=== PATIENT | male | born 1940 | race Hispanic/Latino ===

== ENCOUNTER 2019-06-29 13:38 | Inpatient (IN) | payer OTHER ==
[~2019-06-29] VITALS: Ht 167.6 cm; Wt 96.2 kg
[~2019-06-29 13:38] MED LIST: ATORVASTATIN CA20 MG PO; ENALAPRIL MALEA10 MG PO; JANUVIA50 MG PO; NORCO PO; PREDNISONE5 MG PO; TOUJEO SQ; TRAMADOL HCL-A1 EAC1; Z.0.ALLOPURINOL100 M PO; Z.0.AMBIEN10 MG PO; Z.0.COLCRYS0.6 MG PO; Z.0.GLIMEPIRIDE2 MG PO; Z.0.KEFLEX500 MG PO; Z.0.LOVENOX30 MG/0.3 SQ; Z.0.NIASPAN500 MG; Z.0.SIMVASTATIN40 MG; Z.0.TAMSULOSIN HCL0.; Z.0.VALIUM5 MG PO; Z.2.METFORMIN HCL500 PO
[2019-06-29] MEDS ORDERED: ASPIRIN 81 MG CHEW TAB PO ONE ×2 (13:45→17:00)
[2019-06-29 14:56] LABS: BASOPHILS % 0.8 % (0.0-1.0); EOSINOPHILS # (AUTO) 0.1 (0.0-0.4); HEMATOCRIT 29.2 % (38.2-49.6); HEMOGLOBIN 8.5 g/dL (14.0-18.0); LYMPHOCYTES # (AUTO) 0.7 (1.0-3.2); LYMPHOCYTES % 13.2 % (18.0-39.1); MEAN CORPUSCULAR HEMOGLOBIN 21.9 pg (28-32); MEAN CORPUSCULAR HGB CONC 29.1 g/dL (31-35); MEAN CORPUSCULAR VOLUME 75.1 fL (81-99); MONOCYTES # (AUTO) 0.4 (0.2-0.8); MONOCYTES % 8.7 % (4.4-11.3); NEUTROPHILS # (AUTO) 3.7 (2.1-6.9); NEUTROPHILS % 74.5 % (38.7-80.0); PLATELET COUNT 168 x10e3/uL (140-360); RED BLOOD COUNT 3.89 x10e6/uL (4.3-5.7); RED CELL DISTRIBUTION WIDTH 18.3 % (11.7-14.4)
--- NOTE | 2019-06-29 15:00 | Diagnostic Imaging Report ---
Chest, 1 view, 06/29/2019. History: Shortness of breath. Comparison: 12/10/2016. Findings: The cardiomediastinal silhouette and pulmonary vasculature are mildly prominent. Ill-defined opacity is present in the left midlung and right lateral lung. There are no acute osseous or soft tissue abnormalities. Impression: Mild vascular congestion with ill-defined bilateral pulmonary opacities. Recommend further evaluation with CT chest. Signed by: Saw Gilbert on 06/29/2019 2:57 PM
[2019-06-29 15:08] LABS: INR 0.97; PROTHROMBIN TIME 13.4 seconds (11.9-14.5)
[2019-06-29 15:25] LABS: ALANINE AMINOTRANSFERASE 70 IU/L (0-55); ALBUMIN 3.3 g/dL (3.5-5.0); ALBUMIN/GLOBULIN RATIO 0.8 (0.8-2.0); ALKALINE PHOSPHATASE 179 IU/L (40-150); ANION GAP 14.9 mmol/L (8-16); BLOOD UREA NITROGEN 25 mg/dL (7-26); BUN/CREATININE RATIO 27 (6-25); CALCIUM 9.3 mg/dL (8.4-10.2); CARBON DIOXIDE 23 mmol/L (22-29); CHLORIDE 106 mmol/L (98-107); CREATINE KINASE 39 IU/L (30-200); CREATININE, SERUM 0.93 mg/dL (0.72-1.25); EST GLOMERULAR FILTRATION RATE > 60 ML/MIN (60-); GLUCOSE 148 mg/dL (74-118); POTASSIUM 3.9 mmol/L (3.5-5.1); SODIUM 140 mmol/L (136-145)
[2019-06-29] MEDS ORDERED: SODIUM CHLORIDE FLUSH 10 ML SYR INJ PRN (17:00)
[2019-06-29] MEDS ORDERED: IOPAMIDOL 370 MG/ML 200 ML INFUS..BTL INJ ONE (18:19)
[2019-06-29] MEDS ORDERED: SODIUM CHLORIDE 0.9% 50ML 50 ML ONE (18:19)
--- NOTE | 2019-06-29 18:50 | Diagnostic Imaging Report ---
EXAM: CT Chest WITH contrast 06/29/2019 4:38 PM INDICATION: Left side chest pain, abnormal chest x-ray COMPARISON: Chest x-ray, 06/29/2019 TECHNIQUE: Chest was scanned utilizing a multidetector helical scanner from the lung apex through the level of the adrenal glands with administration of IV contrast. Coronal and sagittal reformations were obtained. Routine protocol was performed. Dose modulation, iterative reconstruction, and/or weight based adjustment of the mA/kV was utilized to reduce the radiation dose to as low as reasonably achievable. IV CONTRAST: 100 mL of Isovue-370 RADIATION DOSE: Total DLP: 641.56 mGy*cm Estimated effective dose: (DLP x 0.014 x size factor) mSv COMPLICATIONS: None FINDINGS: LINES/ TUBES: None. LUNGS AND AIRWAYS: There are moderate centrilobular and paraseptal emphysematous changes. Areas of subpleural reticulation seen in the upper and lower lobes. No pulmonary consolidation. Trachea and main bronchi are clear. PLEURA: No pleural effusion or pneumothorax. HEART AND MEDIASTINUM: The thyroid gland is normal. No mediastinal, hilar or axillary lymphadenopathy. The heart is normal in size.. There is no pericardial effusion. The thoracic aorta is atherosclerotic with scattered calcified plaque. No aneurysm. Main pulmonary artery measures 3.0 cm, upper normal. UPPER ABDOMEN: Included portions of the liver shows a 2.7 cm questionable ill-defined hypodensity in the right lobe segment 8 (series 2, image 55). Included portions of the spleen, pancreas and adrenals show no focal pathology. There are prominent vessels near the fundus of the stomach that may represent varices. There is a 2.9 cm apparent simple cyst partially visualized at the anterior mid left kidney. BONES: There are multiple destructive bony lesions including the posterior lateral left seventh rib with an associated 4.3 cm soft tissue mass in the posterior aspect of the left fifth rib where a 3.9 cm soft tissue mass involves the rib and left side of the vertebral body. There are lytic lesions involving the right side of T11 and T12. There is noted to be a minimally displaced fracture of the posterior aspect of the left eighth rib. There are apparent expansile destructive lesions of the lateral right seventh and eighth ribs. There are faint heterogeneous sclerotic foci in multiple vertebral bodies suggesting possible lesions as well. SOFT TISSUES: Superficial surrounding soft tissue unremarkable. IMPRESSION: 1. Multiple destructive bony lesions involving ribs and the T5 vertebral body. There are also lytic lesions involving the right side of the T11 and T12 vertebral bodies. 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 2. Questionable mass involving the right lobe of the liver. 3. Prominent tortuous vessels near the gastric fundus and GE junction suggesting varices. 4. Moderate centrilobular and paraseptal emphysema. Staff: Madeleine Signed by: Dr. Gavin Salvador M.D. on 06/29/2019 6:47 PM
--- NOTE | 2019-06-29 21:37 | NUR ---
RECIEVED PATIENT IN ROOM
[2019-06-30] VITALS (7 sets, daily range): BP systolic 134–173; BP diastolic 63–90
[2019-06-30 04:14] LABS: CREATINE KINASE 35 IU/L (30-200)
[2019-06-30 05:44] LABS: BASOPHILS % 0.3 % (0.0-1.0); EOSINOPHILS # (AUTO) 0.1 (0.0-0.4); HEMATOCRIT 25.9 % (38.2-49.6); HEMOGLOBIN 7.7 g/dL (14.0-18.0); LYMPHOCYTES # (AUTO) 0.8 (1.0-3.2); LYMPHOCYTES % 24.2 % (18.0-39.1); MEAN CORPUSCULAR HEMOGLOBIN 21.8 pg (28-32); MEAN CORPUSCULAR HGB CONC 29.7 g/dL (31-35); MEAN CORPUSCULAR VOLUME 73.4 fL (81-99); MONOCYTES # (AUTO) 0.4 (0.2-0.8); MONOCYTES % 12.5 % (4.4-11.3); NEUTROPHILS # (AUTO) 2.1 (2.1-6.9); NEUTROPHILS % 60.4 % (38.7-80.0); PLATELET COUNT 134 x10e3/uL (140-360); RED BLOOD COUNT 3.53 x10e6/uL (4.3-5.7); RED CELL DISTRIBUTION WIDTH 18.2 % (11.7-14.4)
[2019-06-30 06:08] LABS: ANION GAP 12.7 mmol/L (8-16); BLOOD UREA NITROGEN 21 mg/dL (7-26); BUN/CREATININE RATIO 25 (6-25); CALCIUM 9.2 mg/dL (8.4-10.2); CARBON DIOXIDE 25 mmol/L (22-29); CHLORIDE 105 mmol/L (98-107); CHOL/HDL RATIO 4.8 (3.9-4.7); CHOLESTEROL 139 MD/DL (0-199); CREATININE, SERUM 0.84 mg/dL (0.72-1.25); EST GLOMERULAR FILTRATION RATE > 60 ML/MIN (60-); GLUCOSE 129 mg/dL (74-118); HDL CHOLESTEROL 29 MG/DL (40-60); LDL CHOLESTEROL 78 MG/DL (60-130); POTASSIUM 3.7 mmol/L (3.5-5.1); SODIUM 139 mmol/L (136-145); TRIGLYCERIDES 161 MG/DL (0-149)
--- NOTE | 2019-06-30 07:14 | NUR ---
DR PAREDES CONSULT CALLED
--- NOTE | 2019-06-30 07:31 | NUR ---
REPORT GIVEN TO ZEV SHARMA
[2019-06-30] MEDS ORDERED: ASPIRIN 81 MG ENTERIC COATED PO SCH (09:00)
--- NOTE | 2019-06-30 10:15 | NUR ---
BEDSIDE REPORT GIVEN IN ROOM 185 TO RECEIVING NURSE
--- NOTE | 2019-06-30 10:20 | NUR ---
received pt to floor [id number] pt denies any pain right now pt has a left ac 20g sl davies rounded and states to dc tele pt and family aware of plan of care , understand there is a possibility of ca, ct abd pending to better diagnose will continue to monitor pt closely side railsx2, bed wheels locked call light is within easy reach, instructed to call for assistance if needed
[2019-06-30] MEDS ORDERED: JANUVIA50 MG PO (10:41)
[2019-06-30] MEDS ORDERED: BASAGLAR K100 UNIT/1 SUBCON (10:41)
[2019-06-30] MEDS ORDERED: PREDNISONE10 MG PO (10:41)
[2019-06-30] MEDS ORDERED: HUMALOG100 UNIT/1 SC (10:41)
[2019-06-30] MEDS ORDERED: GABAPENTIN300 MG PO (10:41)
[2019-06-30] MEDS ORDERED: DEXTROSE 50% SYRINGE 50 ML IV PRN (10:45)
[2019-06-30 11:05] LABS: CREATINE KINASE 37 IU/L (30-200)
[2019-06-30] MEDS: INSULIN LISPRO 100 UNIT/1 ML 3ML VIAL SQ SCH ×3 (11:50→20:42)
[2019-06-30] MEDS: ENALAPRIL MALEATE 10 MG TAB PO SCH (11:50)
[2019-06-30] MEDS: SENNOSIDES 8.6 MG TAB PO SCH ×2 (11:50→17:09)
[2019-06-30] MEDS: HYDROCODONE/APAP 10MG-325MG TAB PO PRN (12:22)
--- NOTE | 2019-06-30 13:11 | NUR ---
PT REPORTS COMPLETE RELIEVE OF BACK PAIN AFTER NORCO PO ADMINISTRATION WILL CONTINUE TO MONITOR
--- NOTE | 2019-06-30 16:30 | NUR ---
pt off floor for ct of abd via wheel chair at this time
[2019-06-30] MEDS: ALLOPURINOL 100 MG TAB PO SCH (17:09)
--- NOTE | 2019-06-30 18:09 | NUR ---
called report to markell in med surg 2 pt will be going to room 206 at this time
[2019-06-30] MEDS: METOPROLOL SUCCINATE 25 MG TAB XL PO SCH (18:15)
--- NOTE | 2019-06-30 18:16 | NUR ---
RCD PT FROM ER BY WHEEL CHAIR PT IS ALERT AND ORIENTED VITALS CHECKED PT RESTING ON BED BED LOW AND LOCKED CALL LIGHT IN REACH
[2019-06-30] MEDS ORDERED: SODIUM CHLORIDE 0.9% 50ML 50 ML ONE (18:38)
[2019-06-30] MEDS ORDERED: IOPAMIDOL 370 MG/ML 200 ML INFUS..BTL INJ ONE (18:39)
--- NOTE | 2019-06-30 18:52 | Diagnostic Imaging Report ---
EXAM: CT Abdomen and Pelvis WITHOUT and WITH contrast INDICATION: Chest pain, liver mass COMPARISON: CT chest, 06/29/2019 TECHNIQUE: Abdomen and pelvis were scanned utilizing a multidetector helical scanner from the lung base to the pubic symphysis before and after administration of IV contrast. Coronal and sagittal reformations were obtained. Liver mass protocol was performed. Scan was performed pre-, arterial, portal venous, and 5 minute delayed phase. Dose modulation, iterative reconstruction, and/or weight based adjustment of the mA/kV was utilized to reduce the radiation dose to as low as reasonably achievable. CTDIvol has been reviewed. It is below the limits set by the Radiation Protocol Committee (RPC). IV CONTRAST: 100 mL of Isovue-370 ORAL CONTRAST: None RADIATION DOSE: Total DLP: 2273.83 mGy*cm Estimated effective dose: (DLP x 0.015 x size factor) mSv COMPLICATIONS: None FINDINGS: LINES and TUBES: None. LOWER THORAX: Emphysema and subpleural reticulation at the lung bases as seen on the previous exam. As previously noted, destructive bony lesions involving T11 and T12. Minimally displaced fracture of the left eighth rib. Expansile destructive lesion of the right eighth rib. Heart size normal. HEPATOBILIARY: Mild lobulation of hepatic contour which may be seen with cirrhosis. There is a 6.1 x 5.6 x 6.7 cm mass in the right lobe of the liver, segment 8. The mass shows slight peripheral enhancement in arterial phase and is heterogeneously dense internally on delayed phase. No other discrete liver mass is seen. No biliary ductal dilation. GALLBLADDER: No radio-opaque stones or sludge. No wall thickening. SPLEEN: Mild splenomegaly with span of 14.6 cm. PANCREAS: No focal masses or ductal dilatation. ADRENALS: No adrenal nodules KIDNEYS/URETERS: Kidneys enhance symmetrically. No hydronephrosis. There are bilateral nonenhancing cyst density lesions in both kidneys compatible with renal cysts. No stones. GI TRACT: No abnormal distention, wall thickening, or evidence of bowel obstruction. Appendix is normal. PELVIC ORGANS/BLADDER: Urinary bladder appears unremarkable. No discrete abnormal mass or fluid collection in the pelvis. LYMPH NODES: No dominant lymph node mass is identified in the abdomen, retroperitoneum or pelvis. VESSELS: Main portal vein measures 1.9 cm, dilated. There are prominent vessels in the gastric fundus suggesting varices. Extensive atherosclerotic plaque is seen along the abdominal aorta and iliac arteries. No aneurysm. The IVC has an unremarkable appearance. PERITONEUM / RETROPERITONEUM: No pneumoperitoneum or ascites. BONES: Bone lesions as previously described in the chest and thoracic spine. There are degenerative changes in the lumbar spine including mild anterior wedging at L1. SOFT TISSUES: Superficial surrounding soft tissue shows small bilateral inguinal hernias containing fat. IMPRESSION: 1. Indeterminate mildly enhancing solid mass in the right lobe of the liver. This may represent a primary or metastatic neoplasm. 2. Cirrhotic hepatic morphology with splenomegaly. The main portal vein appears dilated and varices are seen at the gastric fundus. 3. Destructive bone lesions as previously described on chest CT. Signed by: Dr. Gavin Salvador M.D. on 06/30/2019 6:49 PM
--- NOTE | 2019-06-30 19:13 | NUR ---
PT RESTING ON BED BED SIDE REPORT GIVEN TO ONCOMING NURSE
[2019-06-30] MEDS: INSULIN GLARGINE 100 UNITS/ML VIAL SQ SCH (20:43)
--- NOTE | 2019-06-30 21:33 | Consultation ---
DATE OF CONSULTATION: 06/30/2019 Cardiology Consultation CONSULTING PHYSICIAN: Zhen Bryant MD, Interventional Cardiology. REASON FOR CONSULTATION: Chest pain. HISTORY OF PRESENT ILLNESS: Mr. Quintana is a 78-year-old man with a past medical history significant for diabetes mellitus, hypertension, and morbid obesity, who presents with complaints of discomfort to the back and chest wall, worse with inspiration. EKG was remarkable for sinus rhythm, nonspecific repolarization abnormalities. Cardiac enzymes are serially negative. BNP 130. He describes chest discomfort to occur intermittently throughout the day and to be unaffected by exertion and it is somewhat affected by position. CT chest was remarkable for multiple destructive bony lesions involving ribs and the T5 vertebral body. There are also lytic lesions involving the right side of T11 and T12 vertebral bodies finding suggesting multiple bony metastases of undetermined primary. There is an also questionable mass involving the right lobe of the liver, torturous vessels in the gastric fundus and GE junction suggest varices, moderate centrilobular and paraseptal emphysema. REVIEW OF SYSTEMS: A 12-system review is negative except for as noted above. ALLERGIES: NO KNOWN DRUG ALLERGIES. PAST MEDICAL HISTORY: Significant for diabetes mellitus and hypertension. SOCIAL HISTORY: Active smoker. Denies alcohol or drugs. FAMILY HISTORY: Noncontributory. PHYSICAL EXAMINATION: VITAL SIGNS: Temperature 98.5, heart rate 75, respiratory rate 16, blood pressure 159/84, and O2 saturation 97% on room air. GENERAL: No acute distress. Alert, active. NECK: No JVD. CHEST: Clear to auscultation. CARDIOVASCULAR: Regular rate and rhythm. Normal S1, S2. No S3, no S4. No murmurs, no rubs. ABDOMEN: Soft, nontender, and nondistended. Bowel sounds positive. EXTREMITIES: No cyanosis, clubbing, or edema. CARDIOVASCULAR MEDICATIONS: Reviewed. Enalapril 10 mg daily and morphine p.r.n. LABORATORY DATA: Studies reviewed. Sodium 139, potassium 3.7, chloride 105, bicarbonate 25, BUN 21, creatinine 0.84, glucose 129, calcium 9.2. Serial cardiac enzymes negative. Triglycerides 161, total cholesterol 139, LDL 78, HDL 29, and TSH 1.6. Prostate specific antigen is pending. AST mildly elevated at 58, ALT mildly elevated at 70, alkaline phosphatase mildly elevated at 179, total protein 7.7, and albumin 3.3. ASSESSMENT AND PLAN: 1. Back and chest discomfort, pleuritic/musculoskeletal in features with observe multiple bone lytic lesions suggestive of metastatic disease. 2. Hypertension. 3. Diabetes mellitus. 4. Active smoker. 5. Abnormal LFTs. 6. Recommend echocardiogram reviewed preserved left ventricular systolic function noted without significant valvular abnormalities. Further workup for possible metastatic disease is advised. PSA is pending. Heme-Onc consultation advised. Pain control as needed. Optimize antihypertensive medications. Zhen Bryant MD AFV/MODL /[id number]
[2019-06-30 23:51] LABS: BILIRUBIN,URINE NEGATIVE (NEGATIVE); CLARITY,URINE CLEAR (CLEAR); COLOR,URINE YELLOW (YELLOW); KETONES,URINE NEGATIVE (NEGATIVE); LEUKOCYTE ESTERASE ,URINE NEGATIVE (NEGATIVE); NITRITE,URINE NEGATIVE (NEGATIVE); PROTEIN,URINE DIPSTICK NEGATIVE (NEGATIVE); URINE UROBILINOGEN 0.2 mg/dL (0.2 - 1)
[2019-07-01 00:04] LABS: BACTERIA,URINE RARE /HPF; EPITHELIAL CELLS,URINE RARE /LPF; RBC,URINE 0-5 /HPF (0-5); WBC,URINE (MAN) 0-5 /HPF (0-5)
--- NOTE | 2019-07-01 04:26 | Consultation ---
DATE OF CONSULTATION: 06/30/2019 GI Consult Note REASON FOR CONSULT: 1. Cryptogenic liver cirrhosis. 2. Metastatic liver mass. HISTORY OF PRESENTING ILLNESS: A 78-year-old speaking male. I derived a history through her daughter, who was sitting in the room. She was bilingual. She helped to translate between us. The patient normally follows with Dr. Lisa Cook. He has known history of type 2 diabetes, on insulin, hyperlipidemia, and hypertension. He had been complaining about bony pain in the spine and in the ribs. This prompted the family to bring him to the emergency room. Here, he has had a CT of the chest with contrast that revealed destructive bony lesions in thoracic spine as well as in the ribs. Subsequently, the patient underwent a CT of the abdomen and pelvis with and without contrast. This showed cirrhotic liver, 6.1 x 6.7 cm enhancing mass in the right lobe of the liver with a prominent vessel in the gastric fundus suggestive of varices, mild splenomegaly without any obvious free fluid. Oncology has been consulted. He is scheduled to undergo liver mass biopsy tomorrow. From the nurse, the patient never knew that he has liver cirrhosis, until he had a CT scan done on this admission. Viral hepatitis serology has also been ordered, result is pending. He never had alcohol dependence in his life. He rarely drank alcohol on special occasions. In addition to above, blood work revealed significant microcytic anemia, hemoglobin dropped down from 8.5 to 7.7, MCV 73.4. He has had a colonoscopy five years ago, the patient does not know where he got it done. Therefore, he does not even know the report of the colonoscopy. The patient's daughter tells me that he might have had upper endoscopy, but they are not sure about it. The patient reports otherwise no dark stool, hematemesis, or hematochezia. REVIEW OF SYSTEMS: A 12-point system reviewed, symptomatology is limited as per HPI. PAST MEDICAL HISTORY: Type 2 diabetes, hypertension, hyperlipidemia, peripheral neuropathy, and gout. PAST SURGICAL HISTORY: Colonoscopy in the past. FAMILY HISTORY: Noncontributory. SOCIAL HISTORY: No smoking, alcohol, or any illicit drug use. ALLERGIES: NO KNOWN DRUG ALLERGIES. HOME MEDICATIONS: Allopurinol, enalapril, gabapentin, glimepiride, insulin glargine, insulin lispro, metformin, prednisone, and sitagliptin. PHYSICAL EXAMINATION: VITAL SIGNS: Temperature 96.8, pulse 71, respirations 18, blood pressure 147/69, and oxygen saturation 94% on room air. GENERAL: Not in any acute or apparent distress. HEENT: Oral mucosa is moist. Anicteric sclerae. CVS: S1 and S2 regular. LUNGS: Bilaterally grossly clear with decreased breath sounds at bases. Chest wall tenderness present. ABDOMEN: Protuberant belly. soft, palpable. Mild hepatomegaly 2-3 fingerbreadths below right costal margin, shifting dullness equivocal. Nontender. No hernia. Bowel sounds present. EXTREMITIES: Warm. Trace bilateral leg edema. LABORATORY DATA: Sodium 139, potassium 3.7, chloride 105, bicarb 25, BUN 21, creatinine 0.84, and glucose 129. Liver enzymes on 06/29/2019 showed a total bilirubin of 0.4, AST 58, ALT 70, alkaline phosphatase 179, total protein 7.7, and albumin 3.3. WBC 3.43, hemoglobin 7.7, hematocrit 25.9, MCV 73.4, and platelet count 134. CT of the chest with contrast showed: 1. Multiple destructive bony lesions involving ribs and the T5 vertebral body. There are also lytic lesions involving the right side of T11 and T12 vertebral bodies. 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 2. Questionable mass involving the right lobe of the liver and 0.3 prominent tortuous vessels near the gastric fundus and GE junction suggestive of varices. 3. Moderate centrilobular and paraseptal emphysema. CT scan of the abdomen and pelvis with and without contrast showed: 1. Indeterminate mildly enhancing solid mass in the right lobe of the liver measuring about 6.1 x 6.7 cm. This could be primary versus metastatic neoplasm. 2. Cirrhotic hepatic morphology with splenomegaly. The main portal vein appears dilated and varices are seen at the gastric fundus. 3. Destructive bone lesions as previously described on chest CT. ASSESSMENT: A 78-year-old male with a history of type 2 diabetes and hyperlipidemia, who never had an alcohol dependence, presenting with bony pain in the upper back and ribs, found to have destructive metastatic lesion in the bones with a 6 cm right lower lobe mass with a cirrhotic morphology. IMPRESSION: 1. Liver mass in a cirrhotic liver. There is hepatocellular carcinoma until and unless proved otherwise. 2. Anemia of microcytic indices, could be due to iron deficiency or mixed type. It is likely that the patient has underlying portal hypertensive gastropathy through which he is losing blood. PLAN: Liver mass biopsy is pending tomorrow. We will do ultrasound to check for ascites. AFP tumor marker. For microcytic anemia, iron profile has already been ordered. Stool for occult blood needs to be collected. I had a detailed discussion with of the patient's daughter at the bedside. Definite treatment for hepatocellular carcinoma and cirrhotic liver is liver transplant. However, the patient does not meet [place] criteria. Liver mass is more than 5 cm in size as well as metastatic in nature with mets in the bones. Some survival benefit has been seen by putting the patient on sorafenib. For anemia, further management based upon iron profile and stool guaiac results. I thank Dr. Evans for allowing me to participate in the care of this patient. Leoncio Nguyen MD SA/JAK /[id number] MARY
[2019-07-01 05:38] LABS: EOSINOPHILS # (AUTO) 0.1 (0.0-0.4); EOSINOPHILS % 2.5 % (0.0-6.0); HEMATOCRIT 28.7 % (38.2-49.6); HEMOGLOBIN 8.3 g/dL (14.0-18.0); LYMPHOCYTES # (AUTO) 1.1 (1.0-3.2); LYMPHOCYTES % 26.4 % (18.0-39.1); MEAN CORPUSCULAR HEMOGLOBIN 21.4 pg (28-32); MEAN CORPUSCULAR HGB CONC 28.9 g/dL (31-35); MEAN CORPUSCULAR VOLUME 74.2 fL (81-99); MONOCYTES # (AUTO) 0.5 (0.2-0.8); MONOCYTES % 12.7 % (4.4-11.3); NEUTROPHILS # (AUTO) 2.3 (2.1-6.9); NEUTROPHILS % 56.7 % (38.7-80.0); PLATELET COUNT 139 x10e3/uL (140-360); RED BLOOD COUNT 3.87 x10e6/uL (4.3-5.7); RED CELL DISTRIBUTION WIDTH 18.1 % (11.7-14.4)
[2019-07-01 05:54] VITALS: BP 162/77
[2019-07-01 05:55] LABS: ANION GAP 15.1 mmol/L (8-16); BLOOD UREA NITROGEN 21 mg/dL (7-26); BUN/CREATININE RATIO 23 (6-25); CALCIUM 9.2 mg/dL (8.4-10.2); CARBON DIOXIDE 25 mmol/L (22-29); CHLORIDE 102 mmol/L (98-107); CREATININE, SERUM 0.93 mg/dL (0.72-1.25); EST GLOMERULAR FILTRATION RATE > 60 ML/MIN (60-); GLUCOSE 133 mg/dL (74-118); POTASSIUM 4.1 mmol/L (3.5-5.1); SODIUM 138 mmol/L (136-145)
[2019-07-01 06:30] LABS: FERRITIN 15.27 ng/mL (21.81-274.66)
[2019-07-01] MEDS: INSULIN LISPRO 100 UNIT/1 ML 3ML VIAL SQ SCH ×4 (07:30→20:40)
[2019-07-01] MEDS: SENNOSIDES 8.6 MG TAB PO SCH ×2 (08:20→18:15)
[2019-07-01] MEDS: ALLOPURINOL 100 MG TAB PO SCH ×2 (08:20→18:15)
[2019-07-01] MEDS: ENALAPRIL MALEATE 10 MG TAB PO SCH ×2 (08:20→20:36)
[2019-07-01] MEDS: METOPROLOL SUCCINATE 25 MG TAB XL PO SCH (08:20)
[2019-07-01] MEDS: MORPHINE SULFATE INJ 4 MG/ML INJ 1ML IV PRN ×2 (08:31→20:34)
[2019-07-01 08:32] VITALS: BP 168/86
--- NOTE | 2019-07-01 09:32 | Diagnostic Imaging Report ---
EXAM: Right upper quadrant abdominal ultrasound INDICATION: Right upper quadrant pain COMPARISON: CT abdomen pelvis of 06/30/2019 TECHNIQUE: Transverse and longitudinal images of the right upper quadrant abdomen were obtained FINDINGS: Liver: Size: 19.8 cm in the right midclavicular line, normal Appearance: Mildly heterogeneous echogenicity, mildly nodular contour Mass: 7.6 x 5.6 x 5.7 cm hypoechoic mass in the right liver and associated vascularity. Gallbladder: No gallbladder distension, pericholecystic fluid, wall thickening, stone, or reported sonographic Shafer's sign. Gallbladder wall measures 3 mm. Bile Ducts: Intrahepatic Ducts: No dilatation Extrahepatic Ducts: Common bile duct measures 2 mm Pancreas: Visualized portions of the pancreatic head, neck and proximal body are normal. Kidney: The right kidney measures 9.7 cm without evidence of hydronephrosis or stone. Vessels: Aorta: Visualized portions are normal Inferior Vena Cava: Visualized portions are normal Main Portal Vein: 1.0 cm, normal size with hepatopetal flow. Free Fluid: No ascites or pleural effusion IMPRESSION: 7.6 cm right hepatic mass. No sonographic evidence of cholelithiasis or cholecystitis. No ascites. Signed by: Gissell Milian MD on 07/01/2019 9:28 AM
[2019-07-01 11:56] VITALS: BP 168/86
[2019-07-01 11:57] VITALS: BP 168/86
[2019-07-01 12:11] VITALS: BP 147/80
--- NOTE | 2019-07-01 12:44 | Progress Note ---
DATE: 07/01/2019 Cardiology Progress Note SUBJECTIVE: Chest discomfort and back discomfort is better. Has no other complaints currently. Updated on echo findings with preserved left ventricular systolic function noted. OBJECTIVE: VITAL SIGNS: Temperature 97.8, heart rate 71, respiratory rate 16, blood pressure 168/86, and O2 saturation 97% on room air. GENERAL: No acute distress, alert. NECK: No JVD. CHEST: Clear to auscultation. CARDIOVASCULAR: Regular rate and rhythm. Normal S1, S2. ABDOMEN: Soft. Bowel sounds positive. EXTREMITIES: Trace edema. CARDIOVASCULAR MEDICATIONS: Reviewed. Metoprolol succinate 25 mg daily, Vasotec 10 mg p.o. daily was switched to p.o. b.i.d. 10 mg. STUDIES: Reviewed. White blood cells 4.02, hemoglobin 8.3, platelets 139, glucose 165. Last creatinine 0.9. Last potassium was 4.1. Fecal occult blood test negative. ASSESSMENT AND PLAN: 1. Back and chest discomfort in the setting of multiple bone lytic lesions, suggestive of metastatic disease. 2. Hypertension. 3. Diabetes mellitus. 4. Active smoker. 5. Abnormal LFTs. 6. Preserved left ventricular systolic function on echocardiogram. RECOMMEND: I recommend further workup for abnormal imaging findings concerning for metastatic disease, it is ongoing Heme-Onc consultation considered. PSA is still pending. CEA is pending too. Alpha fetoprotein is pending too. Optimize antihypertensive management. We will up titrate enalapril to b.i.d. dosing. Continue metoprolol. MD TIFF Ordoñez/JAK /[id number]
[2019-07-01] MEDS ORDERED: LIDOCAINE HCL 1% LOCAL INJ 20 ML VIAL ONE (13:09)
[2019-07-01] MEDS ORDERED: FENTANYL CITRATE/PF 100MCG/2 ML INJ ONE (13:24)
[2019-07-01] MEDS ORDERED: MIDAZOLAM HCL 2 MG/2 ML VIAL ONE (13:24)
--- OUTSIDE RECORDS SUMMARY | 2019-07-01 13:59 | XMS REPORT ---
Author Author [facility] Address Unknown Phone Unavailable Care Team Providers Care Lead Trainer Name Role Phone DIEGO LY Unavailable Unavailable Problems This patient has no known problems. Allergies, Adverse Reactions, Alerts This patient has no known allergies or adverse reactions. Medications This patient has no known medications. Results Test Description Test Time Test Comments Text Results Atomic Results Result Comments US ABDOMEN LIMITED 2019-07-01 09:17:00 [place] [address] Patient Name: KYAW SANTANA MR #: [id number] : 1940 Age/Sex: 78/M Req #: [id number] [facility] Physician: DIEGO LY MD Ordered by: MARTITA EDWARDS MD Report #: [id number] Location: MED/SURG2 Room/Bed: [facility] Procedure: [id number] US/US ABDOMEN LIMITED Exam Date: 07/01/19 Exam Time: 0748 REPORT STATUS: Signed EXAM: Right upper quadrant abdominal ultrasound INDICATIO N: Right upper quadrant pain COMPARISON: CT abdomen pelvis of 06/30/2019 TECHNIQUE: Transverse and longitudinal images of the right upper quadrant abdomen were obtained FINDINGS: Liver: Size: 19.8 cm in the right midclavicular line, normal Appearance: Mildly heterogeneous echogenicity, mildly nodular contour Mass: 7.6 x 5.6 x 5.7 cm hypoechoic mass in the right liver and associated vascularity. Gallbladder: No gallbladder distension, pericholecystic fluid, wall thickening, stone, or reported sonographic Shafer's sign. Gallbladder wall measures 3 mm. Bile Ducts: Intrahepatic Ducts: No dilatation Extrahepatic Ducts: Common bile duct measures 2 mm Pancreas: Visualized portions of the pancreatic head, neck and proximal body are normal. Kidney: The right kidney measures 9.7 cm without evidence of hydronephrosis or stone. Vessels: Aorta: Visualized portions are normal Inferior Vena Cava: Visualized portions are normal Main Portal Vein: 1.0 cm, normal size with hepatopetal flow. Free Fluid: No ascites or pleural effusion IMPRESSION: 7.6 cm right hepatic mass. No sonographic evidence of cholelithiasis or cholecystitis. No ascites. Signed by: Tamara Gee MD on 07/01/2019 9:28 AM Dictated By: TAMARA GEE MD 7 Transcribed By: SANDY on 07/01/19927 COPY TO: MARTITA EDWARDS MD CT ABDOMEN/PELVIS WOW 2019-06-30 18:28:00 [place] [address] Patient Name: KYAW SANTANA MR #: [id number] : 1940 Age/Sex: 78/M Req #: [id number] Adm Physician: DIEGO LY MD Ordered by: NATTY PEREZ NP Report #: [id number] Location: [facility] Room/Bed: [facility] Procedure: [id number] CT/CT ABDOMEN/PELVIS WOW Exam Date: 06/30/19 Exam Time: 1720 REPORT STATUS: Signed EXAM: CT Abdomen and Pelvis WITHOUT and WITH contrast INDICATION: Chest pain, liver mass COMPARISON: CT chest, 06/29/2019 TECHNIQUE: Abdomen and pelvis were scanned utilizing a multidetector helical scanner from the lung base to the pubic symphysis before and after administration of IV contrast. Coronal and sagittal reformations were obtained. Liver mass protocol was performed. Scan was performed pre-, arterial, portal venous, and 5 minute delayed phase. Dose modulation, iterative reconstruction, and/or weight based adjustment of the mA/kV was utilized to reduce the radiation dose to as low as reasonably achievable. CTDIvol has been reviewed. It is below the limits set by the Radiation Protocol Committee (RPC). IV CONTRAST: 100 mL of Isovue-370 ORAL CONTRAST: None RADIATION DOSE: Total DLP: 2273.83 mGy*cm Estimated effective dose: (DLP x 0.015 x size factor) mSv COMPLICATIONS: None FINDINGS: LINES and TUBES: None. LOWER THORAX: Emphysema and subpleural reticulation at the lung bases as seen on the previous exam. As previously noted, destructive bony lesions involving T11 and T12. Minimally displaced fracture of the left eighth rib. Expansile destructive lesion of the right eighth rib. Heart size normal. HEPATOBILIARY: Mild lobulation of hepatic contour which may be seen with cirrhosis. There is a 6.1 x 5.6 x 6.7 cm mass in the right lobe of the liver, segment 8. The mass shows slight peripheral enhancement in arterial phase and is heterogeneously dense internally on delayed phase. No other discrete liver mass is seen. No biliary ductal dilation. GALLBLADDER: No radio- opaque stones or sludge. No wall thickening. SPLEEN: Mild splenomegaly with span of 14.6 cm. PANCREAS: No focal masses or ductal dilatation. ADRENALS: No adrenal nodules KIDNEYS/URETERS: Kidneys enhance symmetrically. No hydronephrosis. There are bilateral nonenhancing cyst density lesions in both kidneys compatible with renal cysts. No stones. GI TRACT: No abnormal distention, wall thickening, or evidence of bowel obstruction. Appendix is normal. PELVIC ORGANS/BLADDER: Urinary bladder appears unremarkable. No discrete abnormal mass or fluid collection in the pelvis. LYMPH NODES: No dominant lymph node mass is identified in the abdomen, retroperitoneum or pelvis. VESSELS: Main portal vein measures 1.9 cm, dilated. There are prominent vessels in the gastric fundus suggesting varices. Extensive atherosclerotic plaque is seen along the abdominal aorta an d iliac arteries. No aneurysm. The IVC has an unremarkable appearance. PERITONEUM / RETROPERITONEUM: No pneumoperitoneum or ascites. BONES: Bone lesions as previously described in the chest and thoracic spine. There are degenerative changes in the lumbar spine including mild anterior wedging at L1. SOFT TISSUES: Superficial surrounding soft tissue shows small bilateral inguinal hernias containing fat. IMPRESSION: 1. Indeterminate mildly enhancing solid mass in the right lobe of the liver. This may represent a primary or metastatic neoplasm. 2. Cirrhotic hepatic morphology with splenomegaly. The main portal vein appears dilated and varices are seen at the gastric fundus. 3. Destructive bone lesions as previously described on chest CT. Signed by: Dr. Sachi Shea M.D. on 06/30/2019 6:49 PM Dictated By: SACHI SHEA MD 48 Transcribed By: SANDY on 06/30/191848 COPY TO: NATTY PEREZ RUBBER BLOCK LAYER CT CHEST W 2019-06-29 18:26:00 [place] [address] Patient Name: KYAW SANTANA MR #: [id number] : 1940 Age/Sex: 78/M Req #: [id number] Adm Physician: Ordered by: NATTY PEREZ RUBBER BLOCK LAYER Report #: [id number] Location: ER Room/Bed: Procedure: [id number] CT/CT CHEST W Exam Date: 06/29/19 Exam Time: 1700 REPORT STATUS: Signed EXAM: CT Chest WITH contrast 06/29/2019 4:38 PM INDICATION: Left side chest pain, abnormal chest x-ray COMPARISON: Chest x-ray, 06/29/2019 TECHNIQUE: Chest was scanned utilizing a multidetector helical scanner from the lung apex through the level of the adrenal glands with administration of IV contrast. Coronal and sagittal reformations were obtained. Routine protocol was performed. Dose modulation, iterative reconstruction, and/or weight b ased adjustment of the mA/kV was utilized to reduce the radiation dose to as low as reasonably achievable. IV CONTRAST: 100 mL of Isovue- 370 RADIATION DOSE: Total DLP: 641.56 mGy*cm Estimated effective dose: (DLP x 0.014 x size factor) mSv COMPLICATIONS: None FINDINGS: LINES/ TUBES: None. LUNGS AND AIRWAYS: There are moderate centrilobular and paraseptal emphysematous changes. Areas of subpleural reticulation seen in the upper and lower lobes. No pulmonary consolidation. Trachea and main bronchi are clear. PLEURA: No pleural effusion or pneumothorax. HEART AND MEDIASTINUM: The thyroid gland is normal. No mediastinal, hilar or axillary lymphadenopathy. The heart is normal in size.. There is no pericardial effusion. The thoracic aorta is atherosclerotic with scattered calcified plaque. No aneurysm. Main pulmonary artery measures 3.0 cm, upper normal. UPPER ABDOMEN: Included portions of the liver shows a 2.7 cm questionable ill-defined hypodensity in the right lobe segment 8 (series 2, image 55). Included portions of the spleen, pancreas and adrenals show no focal pathology. There are prominent vessels near the fundus of the stomach that may represent varices. There is a 2.9 cm apparent simple cyst partially visualized at the anterior mid left kidney. BONES: There are multiple destructive bony lesions including the posterior lateral left seventh rib with an associated 4.3 cm soft tissue mass in the posterior aspect of the left fifth rib where a 3.9 cm soft tissue mass involves the rib and left side of the vertebral body. There are lytic lesions involving the right side of T11 and T12. There is noted to be a minimally displaced fracture of the posterior aspect of the left eighth rib. There are apparent expansile destructive lesions of the lateral right seventh and eighth ribs. There are faint heterogeneous sclerotic foci in multiple vertebral bodies suggesting possible lesions as well. SOFT TISSUES: Superficial surrounding soft tissue unremarkable. IMPRESSION: 1. Multiple destructive bony lesions involving ribs and the T5 vertebral body. There are also lytic lesions involving the right side of the T11 and T12 vertebral bodies. 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 2. Questionable mass involving the right lobe of the liver. 3. Prominent tortuous vessels near the gastric fundus and GE junction suggesting varices. 4. Moderate centrilobular and paraseptal emphysema. Staff: Madeleine Signed by: Dr. Sachi Shea M.D. on 06/29/2019 6:47 PM Dictated By: SACHI SHEA MD 46 Transcribed By: SANDY on 06/29/191846 COPY TO: NATTY PEREZ RUBBER BLOCK LAYER CHEST SINGLE (NOT PORTABLE) 2019-06-29 14:56:00 [place] [address] Patient Name: KYAW SANTANA MR #: [id number] : 1940 Age/Sex: 78/M Req #: [id number] Adm Physician: Ordered by: NATTY PEREZ RUBBER BLOCK LAYER Report #: [id number] Location: ER Room/Bed: Procedure: [id number] DX/CHEST SINGLE (NOT PORTABLE) Exam Date: 06/29/19 Exam Time: 1420 REPORT STATUS: Signed Chest, 1 view, 06/29/2019. History: Shortness of breath. Comparison: 12/10/2016. Findings: The cardiomediastinal silhouette and pulmonary vasculature are mildly prominent. Ill-defined opacity is present in the left midlung and right lateral lung. There are no acute osseous or soft tissue abnormalities. Impression: Mild vascular congestion with ill-defined bilateral pulmonary opacities. Recommend further evaluation with CT chest. Signed by: Natty Gilbert on 06/29/2019 2:57 PM Dictated By: NATTY GILBERT MD 56 Transcribed By: SANDY on 06/29/191456 COPY TO: NATTY PEREZ RUBBER BLOCK LAYER
--- NOTE | 2019-07-01 15:58 | Diagnostic Imaging Report ---
TECHNIQUE: Frontal view of the chest. INDICATION: 78-year-old man after left rib lesion biopsy. COMPARISON: CT-guided left rib lesion biopsy from earlier same date, chest radiograph 06/29/2019. FINDINGS: LINES/TUBES: None. LUNGS: Decreased aeration of the lungs. No consolidation or pulmonary edema. PLEURA: No definite pneumothorax pneumothorax or significant pleural effusion. HEART AND MEDIASTINUM: The cardiomediastinal silhouette appears prominent, likely due to low lung volumes. SOFT TISSUES AND BONES: Persistent nodular opacity projects over the left midlung zone and correlates with the recently biopsied left rib lesion. IMPRESSION: No definite pneumothorax. Signed by: Braxton Campbell MD on 07/01/2019 3:54 PM
--- NOTE | 2019-07-01 17:10 | Diagnostic Imaging Report ---
PROCEDURE: CT-guided left pleural/lung mass biopsy Procedural Personnel Attending physician(s): Gissell Milian MD Fellow physician(s): None Resident physician(s): None Advanced practice provider(s): None Pre-procedure diagnosis: Left pleural mass Post-procedure diagnosis: Same Indication: Histopathologic diagnosis Previous biopsy of same target (QCDR): No Additional clinical history: Left pleural mass with extension to rib and lung. Complications: No immediate complications. IMPRESSION: CT-guided biopsy of left pleural based mass involving rib and lung. Plan: Specimen(s) sent for evaluation. PROCEDURE SUMMARY: - Percutaneous CT-guided core needle and fine needle aspiration biopsy - Additional procedure(s): None PROCEDURE DETAILS: Pre-procedure Reference imaging for biopsy target: Chest CT 06/29/2019 Consent: Informed consent for the procedure including risks, benefits and alternatives was obtained and time-out was performed prior to the procedure. Preparation: The site was prepared and draped using maximal sterile barrier technique including cutaneous antisepsis. Anesthesia/sedation Level of anesthesia/sedation: Moderate sedation (conscious sedation) Anesthesia/sedation administered by: Independent trained observer under attending supervision with continuous monitoring of the patient?s level of consciousness and physiologic status Total intra-service sedation time (minutes): 45 Imaging prior to biopsy The patient was positioned prone. Initial imaging was performed using noncontrast CT. Biopsy target: - Maximal diameter (cm): 4.5 - Location: Left posterior pleura Other findings: None Biopsy Local anesthesia was administered. Under CT guidance, the biopsy needle was advanced to the target and biopsy was performed. Coaxial needle: 17 gauge Core needle biopsy device: Temno Core needle size: 18 gauge Number of core specimens: 3 Fine needle aspiration device: Chiba Fine needle size: 22g Number of FNA specimens: 3 On-site biopsy touch preparation: Yes Additional sampling recommendations: None Preliminary assessment of sample adequacy: Adequate Needle removal The biopsy needle was removed and a sterile dressing was applied. Tract embolization: None Imaging following biopsy Immediate post-biopsy imaging was performed using noncontrast CT. Post-biopsy imaging findings: No pneumothorax Contrast Contrast agent: None Contrast volume (mL): [address] dose length product (mGy-cm): 2416.88 Dose modulation, iterative reconstruction, and/or weight based adjustment of the mA/kV was utilized to reduce the radiation dose to as low as reasonably achievable. Additional Details Additional description of procedure: None Equipment details: None Specimens removed: Biopsy samples as detailed above Estimated blood loss (mL): Less than 10 Standardized report: [email or web address] Attestation Signer name: Gissell Milian MD I attest that I was present for the entire procedure. I reviewed the stored images and agree with the report as written. Signed by: Gissell Milian MD on 07/01/2019 5:07 PM
--- NOTE | 2019-07-01 19:45 | Diagnostic Imaging Report ---
EXAM: CHEST SINGLE (PORTABLE) DATE: 07/01/2019 6:35 PM INDICATION: ^CT guided lung biospy COMPARISON: Chest x-ray, 07/01/2019, 3:34 PM FINDINGS: Lines and tubes: None Cardiac silhouette slightly enlarged. Patchy opacity in the left midlung again noted. No pleural effusion. No pneumothorax identified. Upper abdomen unremarkable. No acute bony abnormality. IMPRESSION: Cardiomegaly with no pneumothorax seen. Patchy opacity again seen in the left midlung. Signed by: Dr. Gavin Salvador M.D. on 07/01/2019 7:41 PM
[2019-07-01 20:08] VITALS: BP 182/91
--- NOTE | 2019-07-01 20:15 | NUR ---
Patient visited in room during nursing rounds. Patient alert and oriented x3 and Bulgarian speaking only. Family at bedside visiting. Patient having intermittent chest pain and will be medicated accordingly. Pt ambulatory with standby assist prn. Call jacome within reach.
[2019-07-01] MEDS ORDERED: SODIUM CHLORIDE 0.9% 250ML 250 ML ONE (20:30)
[2019-07-01] MEDS: INSULIN GLARGINE 100 UNITS/ML VIAL SQ SCH (20:40)
[2019-07-01] MEDS: IRON SUCROSE 200 MG in SODIUM CHLORIDE 0.9% 100 ML 100 ML IV SCH (20:43)
[2019-07-02] VITALS (8 sets, daily range): BP systolic 95–149; BP diastolic 52–81
[2019-07-02] MEDS: INSULIN LISPRO 100 UNIT/1 ML 3ML VIAL SQ SCH ×4 (07:30→21:42)
[2019-07-02] MEDS: SENNOSIDES 8.6 MG TAB PO SCH ×2 (09:27→17:36)
[2019-07-02] MEDS: METOPROLOL SUCCINATE 25 MG TAB XL PO SCH (09:28)
[2019-07-02] MEDS: ENALAPRIL MALEATE 10 MG TAB PO SCH ×2 (09:28→21:42)
[2019-07-02] MEDS: ALLOPURINOL 100 MG TAB PO SCH ×2 (09:28→17:36)
[2019-07-02] MEDS: HYDROCODONE/APAP 10MG-325MG TAB PO PRN ×2 (09:33→21:49)
[2019-07-02] MEDS ORDERED: FENTANYL 50 MCG/HR PATCH TOP SCH (10:30)
--- NOTE | 2019-07-02 20:00 | NUR ---
pt received. pt assessed. no ss of distress noted. no co pain at time. will cont to follow poc. call jacome within reach.
--- NOTE | 2019-07-02 20:37 | Progress Note ---
DATE: 07/02/2019 Cardiology Progress Note SUBJECTIVE: Denies any chest discomfort or shortness of breath. OBJECTIVE: VITAL SIGNS: Temperature 97.1, heart rate 76, blood pressure 121/61, respiratory rate 16, O2 saturation 93%, BMI 34.2. GENERAL: In no acute distress. Alert. NECK: No JVD. CHEST: Clear to auscultation. CARDIOVASCULAR: Regular rate and rhythm, normal S1 and S2, no S3 or S4. ABDOMEN: Distended. Bowel sounds positive. EXTREMITIES: Trace edema. Warm distal extremities. CARDIOVASCULAR MEDICATIONS: Reviewed. Fentanyl patch, metoprolol succinate 25 mg daily, and enalapril 10 mg every 12 hours with improvement in blood pressure control. STUDIES: Reviewed. Remarkable for a creatinine of 0.9. White blood cells of 4.0, hemoglobin 8.3, platelets 139. INR 0.9. AST 58, ALT 70, alkaline phosphatase 179. ASSESSMENT AND PLAN: A 78-year-old man, who presents with: 1. Lytic lesions in multiple sites including bone, wrist, and spine. 2. Pancytopenia and abnormal liver imaging concerning for liver cirrhosis and liver mass concerning for hepatocellular carcinoma versus metastatic disease. 3. Hypertension. 4. Diabetes mellitus. 5. Morbid obesity with BMI of 34. RECOMMEND: 1. Continue current antihypertensive regimen. 2. Hematology/Oncology did workup advised. 3. We will be available as needed. Please call with any questions. MD TIFF Ordoñez/JAK /[id number]
[2019-07-02] MEDS: IRON SUCROSE 200 MG in SODIUM CHLORIDE 0.9% 100 ML 100 ML IV SCH (21:42)
[2019-07-02] MEDS: INSULIN GLARGINE 100 UNITS/ML VIAL SQ SCH (21:42)
--- NOTE | 2019-07-02 22:30 | NUR ---
left hand 20g infiltrated. iv dc'd catheter tip intact. drsg applied to site. x1 attempt to right ac 20g successful. pt tolerated well. no distress noted. call jacome within reach.
[2019-07-03] VITALS: BP 95/55
--- NOTE | 2019-07-03 03:55 | NUR ---
pt resting. no ss of distress noted. call jacome within reach.
[2019-07-03 04:00] VITALS: BP 106/65
--- NOTE | 2019-07-03 07:00 | NUR ---
BEDSIDE SHIFT REPORT RECEIVED FROM THE NUTRITION MANAGER RN. EDUCATED PT ABOUT FALL PRECAUTIONS. CALL LIGHT WITH IN EASY REACH. INSTRUCTED PT TO USE CALL LIGHT FOR ALL THE NEEDS. PT VERBALIZED UNDERSTANDING. BED IS LOW AND LOCKED. SIDE RAILS X2. BED ALARM IS ON. FAMILY AT BEDSIDE. PT DENIES NEEDS AT THIS TIME.
[2019-07-03 07:07] LABS: BASOPHILS % 0.5 % (0.0-1.0); EOSINOPHILS # (AUTO) 0.2 (0.0-0.4); EOSINOPHILS % 3.6 % (0.0-6.0); HEMATOCRIT 28.9 % (38.2-49.6); HEMOGLOBIN 8.3 g/dL (14.0-18.0); LYMPHOCYTES # (AUTO) 1.1 (1.0-3.2); MEAN CORPUSCULAR HEMOGLOBIN 21.5 pg (28-32); MEAN CORPUSCULAR HGB CONC 28.7 g/dL (31-35); MEAN CORPUSCULAR VOLUME 74.9 fL (81-99); MONOCYTES # (AUTO) 0.7 (0.2-0.8); MONOCYTES % 15.5 % (4.4-11.3); NEUTROPHILS # (AUTO) 2.4 (2.1-6.9); NEUTROPHILS % 54.5 % (38.7-80.0); PLATELET COUNT 147 x10e3/uL (140-360); RED BLOOD COUNT 3.86 x10e6/uL (4.3-5.7); RED CELL DISTRIBUTION WIDTH 18.4 % (11.7-14.4)
[2019-07-03 07:34] LABS: ANION GAP 13.9 mmol/L (8-16); BLOOD UREA NITROGEN 21 mg/dL (7-26); BUN/CREATININE RATIO 24 (6-25); CALCIUM 9.1 mg/dL (8.4-10.2); CARBON DIOXIDE 23 mmol/L (22-29); CHLORIDE 103 mmol/L (98-107); CREATININE, SERUM 0.89 mg/dL (0.72-1.25); EST GLOMERULAR FILTRATION RATE > 60 ML/MIN (60-); GLUCOSE 134 mg/dL (74-118); POTASSIUM 3.9 mmol/L (3.5-5.1); SODIUM 136 mmol/L (136-145)
[2019-07-03 08:00] VITALS: BP 171/79
[2019-07-03] MEDS: SENNOSIDES 8.6 MG TAB PO SCH (08:10)
[2019-07-03] MEDS: ENALAPRIL MALEATE 10 MG TAB PO SCH (08:11)
[2019-07-03] MEDS: METOPROLOL SUCCINATE 25 MG TAB XL PO SCH (08:11)
[2019-07-03] MEDS: ALLOPURINOL 100 MG TAB PO SCH (08:11)
[2019-07-03] MEDS: INSULIN LISPRO 100 UNIT/1 ML 3ML VIAL SQ SCH ×2 (08:15→11:30)
[2019-07-03 08:16] VITALS: BP 171/79
--- NOTE | 2019-07-03 10:27 | NUR ---
IMM letter delivered and explained to pt and family at bedside. They verbalized understanding. Pt states he is ready to go home. Signed copy placed in chart. Dominican copy given to pt.
[2019-07-03] MEDS ORDERED: SENNA LAX8.6 MG (10:44)
[2019-07-03] MEDS ORDERED: TESSALON PERLE100 MG (10:44)
[2019-07-03] MEDS ORDERED: NORCO 10-325 T1 EACH (10:45)
[2019-07-03] MEDS ORDERED: ZOFRAN4 MG PO (10:45)
[2019-07-03] MEDS ORDERED: DURAGESIC1 EAC1 (10:51)
[2019-07-03 11:18] LABS: PLATELET ESTIMATE ADEQUATE; PLATELET MORPHOLOGY COMMENT NORMAL
[2019-07-03 11:20] LABS: ANISOCYTOSIS SLIGHT; HYPOCHROMASIA SLIGHT; RBC MORPHOLOGY COMMENT ABNORMAL
[2019-07-03 11:30] VITALS: BP 137/63
--- NOTE | 2019-07-03 11:30 | NUR ---
PT REFUSED INSULIN.
--- NOTE | 2019-07-03 11:50 | Discharge Summary ---
PRIMARY CARE PHYSICIAN: Louis Cook MD CONSULTANTS: 1. Dr. Wilferdo Beck. 2. Dr. Noe Shankar. 3. Dr. Zhen Bryant. FINAL DIAGNOSES: 1. Status post CT-guided biopsy of left pleural-based mass involving ribs and lungs. 2. A 7.6 cm right hepatic mass. 3. Cirrhotic hepatic Hematology with splenomegaly and destructive bone lesion. 4. Abdominal pain. HISTORY: This is a 78-year-old male, came in with abdominal pain and chest pain. The patient had multiple workup including chest CT, abdominal and pelvic CT, subsequent needle aspiration CT on July 01. Lung CT-guided biopsy left pleural-based mass involving the ribs and the lung. The patient pathology is still pending. Repeat abdominal ultrasound showed no sonographic evidence of gallstone or cholecystitis, and no ascites, but the patient confirmed with again 7.6 cm right hepatic mass. The patient was in pain, therefore he receiving pain medication. He is doing much better with Duragesic patch 50 mcg every 72 hours along with [place] as needed for pain. The patient is otherwise, stable. He will go home today for the holiday. He need to follow up with Dr. Beck and his family physician within a week. Pathology should be available at that time. The patient is otherwise, stable. He is comfortable. He will go home today. We will send out a note to Dr. Louis Cook. The patient is otherwise, stable at this time. MD GERARD Alicia/FABRICIOL /[id number]
--- NOTE | 2019-07-03 12:00 | NUR ---
PT DISCHARGED HOME SAFELY WITH FAMILY. PT ESCORTED VIA WHEEL CHAIR TO THE PRIVATE AUTO AT THE FRONT ENTRANCE. RX GIVEN. TELE AND IV REMOVED. TIP INTACT. DRESSING APPLIED. PT DENIED FURTHER NEEDS.
== END 2019-07-03 12:13 | disposition home or self-care (01) | DRG 436 ==
LOC: ER 13:38 → ERHOLD 17:02 → MED/SURG2 06-30 18:16
PROVIDERS: ADMIT Internal Medicine; ATTEND Internal Medicine
PROC: 0BBL3ZX Excision of Left Lung, Percutaneous Approach, Diagnostic (ICD-10-PCS; principal; 2019-07-01)
PROC: 0B9L3ZX Drainage of Left Lung, Percutaneous Approach, Diagnostic (ICD-10-PCS; 2019-07-01)
DX: C22.8 Malignant neoplasm of liver, primary, unspecified as to type (principal); J94.8 Other specified pleural conditions; K76.6 Portal hypertension; C79.51 Secondary malignant neoplasm of bone; C78.01 Secondary malignant neoplasm of right lung; D61.818 Other pancytopenia; E11.9 Type 2 diabetes mellitus without complications; E66.01 Morbid (severe) obesity due to excess calories; Z68.34 Body mass index [BMI] 34.0-34.9, adult; F17.210 Nicotine dependence, cigarettes, uncomplicated; K74.69 Other cirrhosis of liver; K31.89 Other diseases of stomach and duodenum; G89.3 Neoplasm related pain (acute) (chronic)
CPT/HCPCS: 10009; 32405; 36415; 71045; 71260; 74178; 74470; 76705; 77012; 80048; 80053; 80061; 81001; 82105; 82270; 82378; 82550; 82553; 82607; 82728; 82746; 82948; 83540; 83880; 84152; 84443; 84466; 84484; 85025; 85610; 85730; 86704; 86706; 86803; 87340; 88172; 88173; 88305; 88342; 93005; 93306; 96367; 96372; 99152; 99284; J1756; J1815; J2001; J2250; J2270; J3010; J7050; Q9967

== ENCOUNTER 2019-10-07 20:11 | Inpatient (IN) | payer OTHER ==
[~2019-10-07] VITALS: Ht 177.8 cm; Wt 88.0 kg
[~2019-10-07 20:11] MED LIST changes: +BASAGLAR K100 UNIT/1 SUBCON; +DURAGESIC1 EAC1; +GABAPENTIN300 MG PO; +HUMALOG100 UNIT/1 SC; +NORCO 10-325 T1 EACH; +PREDNISONE10 MG PO; +SENNA LAX8.6 MG; +TESSALON PERLE100 MG; +ZOFRAN4 MG PO
[2019-10-07] MEDS ORDERED: SODIUM CHLORIDE 0.9% 1000ML 1,000 ML IV ONE ×3 (20:30→21:15)
[2019-10-07] MEDS ORDERED: SODIUM CHLORIDE 0.9% 1000ML 3,000 ML ONE (20:31)
[2019-10-07] MEDS ORDERED: CEFEPIME 2 GM/NS 0.9% 100 ML 100 ML IV ONE ×2 (20:43→22:45)
[2019-10-07 21:00] LABS: BASOPHILS % 0.6 % (0.0-1.0); HEMATOCRIT 28.9 % (38.2-49.6); HEMOGLOBIN 9.3 g/dL (14.0-18.0); LYMPHOCYTES # (AUTO) 0.3 (1.0-3.2); MEAN CORPUSCULAR HEMOGLOBIN 29.3 pg (28-32); MEAN CORPUSCULAR HGB CONC 32.2 g/dL (31-35); MEAN CORPUSCULAR VOLUME 91.2 fL (81-99); MONOCYTES # (AUTO) 0.1 (0.2-0.8); MONOCYTES % 6.1 % (4.4-11.3); NEUTROPHILS # (AUTO) 1.2 (2.1-6.9); NEUTROPHILS % 71.5 % (38.7-80.0); PLATELET COUNT 64 x10e3/uL (140-360); RED BLOOD COUNT 3.17 x10e6/uL (4.3-5.7); RED CELL DISTRIBUTION WIDTH 20.2 % (11.7-14.4)
[2019-10-07] MEDS ORDERED: CEFEPIME 2 GM/NS 0.9% 100 ML 100 ML IV SCH (21:00)
[2019-10-07 21:13] LABS: INR 1.14; PARTIAL THROMBOPLASTIN TIME 38.8 seconds (23.8-35.5); PROTHROMBIN TIME 15.3 seconds (11.9-14.5)
[2019-10-07 21:14] LABS: CLARITY,URINE SL CLOUDY (CLEAR); COLOR,URINE YELLOW (YELLOW)
[2019-10-07 21:15] LABS: ALBUMIN 1.8 g/dL (3.5-5.0); ALBUMIN/GLOBULIN RATIO 0.6 (0.8-2.0); AMYLASE 103 U/L (25-125); CALCIUM 7.2 mg/dL (8.4-10.2); CREATININE, SERUM 2.13 mg/dL (0.72-1.25); LIPASE 11 U/L (8-78)
[2019-10-07 21:15] LABS: BILIRUBIN,URINE MODERATE (NEGATIVE); KETONES,URINE TRACE (NEGATIVE); LEUKOCYTE ESTERASE ,URINE NEGATIVE (NEGATIVE); NITRITE,URINE NEGATIVE (NEGATIVE); PROTEIN,URINE DIPSTICK TRACE (NEGATIVE); RBC,URINE 0-5 /HPF (0-5); URINE UROBILINOGEN 2 mg/dL (0.2 - 1); WBC,URINE (MAN) 0-5 /HPF (0-5)
[2019-10-07 21:16] LABS: BACTERIA,URINE RARE /HPF; EPITHELIAL CELLS,URINE FEW /LPF
[2019-10-07 21:33] LABS: LYMPHOCYTES % (MANUAL) 18 % (19-48); MONOCYTES % (MANUAL) 5 % (3.4-9.0); NEUTROPHILS % (MANUAL) 77 % (40-74)
--- NOTE | 2019-10-07 21:47 | NUR ---
aware of BP at this time. Family deferred central line placement. Dr. Puckett states to move patient to ICU as soon as possible.
--- NOTE | 2019-10-07 21:55 | NUR ---
Per Dr. Puckett, family states ok to start a central line at this time.
[2019-10-07] MEDS ORDERED: VANCOMYCIN 1GM/NS 250 ML 250 ML IV ONE (22:00)
[2019-10-07] MEDS ORDERED: FILGRASTIM 480 MCG/0.8 ML SQ ONE (22:15)
[2019-10-07] MEDS ORDERED: NOREPINEPHRINE 8 MG/D5W 250 ML 250 ML ONE (22:25)
[2019-10-07] MEDS ORDERED: ALBUMIN 25% 25GM 100ML 0.25 GM/ML BTL IV ONE (22:30)
[2019-10-07] MEDS ORDERED: HYDROCODONE/APAP 10MG-325MG TAB PO PRN (22:30)
[2019-10-07] MEDS ORDERED: NOREPINEPHRINE INJ 4MG/4ML 8 MG in DEXTROSE 5% 250ML 242 ML IV PRN ×2 (22:30→22:45)
--- NOTE | 2019-10-07 22:30 | NUR ---
Repeat lactic sent to lab
--- NOTE | 2019-10-07 22:35 | Operative Report ---
DATE OF PROCEDURE: SURGEON: Juventino Puckett MD PROCEDURE PERFORMED: Central line placement under ultrasound guidance. PREOPERATIVE DIAGNOSIS: Liver cancer with metastasis. POSTOPERATIVE DIAGNOSIS: Liver cancer with metastasis. CONSENT: Consent was obtained from the daughter. ANESTHESIA: 1% lidocaine was used for local anesthesia. PROCEDURE IN DETAIL: The patient was placed in a supine position. The right groin was prepped sterilely. An ultrasound machine was used to locate the right femoral vein. The vein was then cannulated under direct visualization with a 16-gauge needle. A wire was passed through the needle. A dilator was used to dilate the skin. A triple-lumen catheter was then passed over the wire by the Seldinger technique. All the ports flushed. COMPLICATIONS: None. ESTIMATED BLOOD LOSS: None. Juventino Puckett MD LMH/MODL /[id number]
--- NOTE | 2019-10-07 22:45 | NUR ---
Per Dr. Puckett, keep MAP at or above 60.
--- NOTE | 2019-10-07 22:55 | Diagnostic Imaging Report ---
EXAMINATION: Head CT without contrast. HISTORY:Altered mental status. COMPARISON:None. TECHNIQUE: Multidetector axial images were obtained from the foramen magnum to the vertex without contrast. The images were reconstructed using brain and bone algorithms. Thin section brain images were reformatted into coronal and sagittal planes. Dose modulation, iterative reconstruction, and/or weight based adjustment of the mA/kV was utilized to reduce the radiation dose to as low as reasonably achievable. Intravenous contrast: None IMAGE QUALITY: Suboptimal evaluation of posterior fossa and skull base due to streak artifacts. FINDINGS: Skull/scalp: No lytic or blastic. lesions. No surgical changes. Parenchyma: Nonspecific few, scattered supratentorial white matter hypodensity are likely related to small vessel ischemic changes. No acute hemorrhage, mass or acute major vascular territorial infarct. Arteries: No density suggestive of thrombosis. Atherosclerotic calcification in bilateral carotid siphon and V4 segment of right vertebral artery. Dural sinuses: No abnormal density suggestive of thrombosis. Ventricles: No hydrocephalus or displacement. Extra-axial spaces: No abnormal density. Brain volume: Normal for age. Craniocervical junction: No mass, Chiari malformation, or basilar invagination. Sella: No mass. Paranasal/mastoid sinuses: Trace opacification of the posterior aspect of left mastoid air cells. IMPRESSION: No acute intracranial abnormality. Minimal supratentorial white matter microvascular ischemic changes. Signed by: Dr. Diya Valdovinos M.D. on 10/07/2019 10:51 PM
--- NOTE | 2019-10-07 23:07 | NUR ---
plant engineering supervisor called for albumin
--- NOTE | 2019-10-07 23:10 | Consultation ---
DATE OF CONSULTATION: Pulmonary Critical Care Consultation CHIEF COMPLAINT: Metastatic liver cancer with low blood pressure and possible sepsis. CONSULTING PHYSICIAN: Dr. Tim Gandhi. ADDITIONAL ATTENDING PHYSICIAN: Dr. Tyree Evans. HISTORY OF PRESENT ILLNESS: The patient is a 78-year-old man. He has a history of liver cancer with thoracic met. He underwent a CT-guided biopsy in June of 2019. He was found to have a hepatocellular carcinoma. He has been following with Dr. Hill of Oncology. She has been using chemotherapy. For the last 2 weeks, the chemotherapy has been on hold because of leukopenia and thrombocytopenia. The patient recently became more confused. He also had a temperature and he was brought to the emergency department. Upon arrival in the emergency department, he was found to have a low blood pressure as well as some possible ascites. He was placed on oxygen and received intravenous fluids. PAST MEDICAL HISTORY: 1. Metastatic liver cancer. 2. Leukopenia. 3. Thrombocytopenia. ALLERGIES: THERE ARE NO KNOWN DRUG ALLERGIES. FAMILY HISTORY: Noncontributory. SOCIAL HISTORY: The patient is not an active smoker. He is not an active drinker. REVIEW OF SYSTEMS: The patient does not have any fevers. He has no headache. He is not complaining of neck pain. He denies any chest pain. He does not complain of cough or dyspnea. He does have some abdominal distention. He does not have any leg edema. He does have increased confusion. PHYSICAL EXAMINATION: VITAL SIGNS: The patient is afebrile. The blood pressure is 90/50 after receiving intravenous fluids. HEENT: Shows no facial swelling or erythema. LYMPHATIC: Shows no submandibular, cervical, or supraclavicular adenopathy. CARDIAC: Reveals regular rate and rhythm with normal S1 and S2. LUNGS: Auscultation of lungs reveals decreased breath sounds at the bases. There is no wheezing. ABDOMEN: Soft. There is some ascites. There is no rebound or guarding. There is no tenderness. EXTREMITIES: There is no leg edema. LABORATORY DATA: White blood cell count is decreased at 1.6 and the platelet count is 64. IMPRESSION: 1. Spontaneous bacterial peritonitis with severe sepsis, present on admission. 2. Metastatic liver cancer. 3. Cirrhosis 4. Hepatorenal syndrome type II 3. Thrombocytopenia. 4. Leukopenia. 5. Anemia. PLAN: 1. After discussion with the family, the family has opted for DNR status. They do not want defibrillation nor CPR. They do not want any mechanical ventilation. 2. Antoine culture the patient and begin broad-spectrum antibiotics. 3. The patient is awaiting CT scan of the abdomen and pelvis as well as chest. 4. Neupogen. 5. Oncology consultation. 6. Continue to monitor mental status. 7. Continue to monitor blood counts. 8. Prognosis is very poor. 9. Case discussed with daughters, ER nursing, ER physician, and ICU nursing staff. Juventino Puckett MD [facility] /[id number]
[2019-10-07] MEDS: FENTANYL 50 MCG/HR PATCH TD SCH (23:25)
--- NOTE | 2019-10-07 23:36 | NUR ---
ER MD AND PRIMARY RN NOTIFIED AND AWARE OF CRITICAL LAB VALUE, LACTIC ACID 2.3.
--- NOTE | 2019-10-07 23:53 | Diagnostic Imaging Report ---
EXAM: CT Chest, Abdomen and Pelvis WITHOUT contrast INDICATION: Hypoxia COMPARISON: CT chest 06/29/2019, CT abdomen 06/30/2019. TECHNIQUE: Chest, abdomen and pelvis were scanned utilizing a multidetector helical scanner from the lung apex to the pubic symphysis without administration of IV contrast. Absence of intravenous contrast decreases sensitivity for detection of focal lesions and vascular pathology. Coronal and sagittal reformations were obtained. Routine protocol was performed. IV CONTRAST: None ORAL CONTRAST: None COMPLICATIONS: None RADIATION DOSE: Total DLP: 793 mGy*cm Estimated effective dose: (DLP x 0.015 x size factor) mSv CTDIvol has been reviewed. It is below the limits set by the Radiation Protocol Committee (RPC). Dose modulation, iterative reconstruction, and/or weight based adjustment of the mA/kV was utilized to reduce the radiation dose to as low as reasonably achievable. FINDINGS: LINES and TUBES: Right femoral central venous catheter, tip in the right external iliac vein.. LUNGS AND AIRWAYS: A 2.9 cm soft tissue density with central cavitation in the left lower lobe basal medial segment. Consolidation and atelectasis of the right lower lobe. Mild pulmonary emphysematous changes. Airways are normal. PLEURA: Moderate volume right hemothorax. Small left pleural effusion. HEART AND MEDIASTINUM: The thyroid gland is normal. No mediastinal, hilar or axillary lymphadenopathy. The heart is normal in size. There is no pericardial effusion. There are mild atherosclerotic calcifications in the aorta and coronary arteries. Left coronary calcifications.. HEPATOBILIARY: Compared to 06/29/2019, increased size and number of numerous bilobar hepatic masses, the largest is a 10.2 cm right hepatic segment 8/5 mass. No biliary ductal dilation. GALLBLADDER: No radio-opaque stones or sludge. No wall thickening. SPLEEN: No splenomegaly. PANCREAS: No focal masses or ductal dilatation. ADRENALS: No adrenal nodules KIDNEYS/URETERS: No hydronephrosis. No cystic or solid mass lesions. No stones. Stable left renal cyst. GI TRACT: No abnormal distention, wall thickening, or evidence of bowel obstruction. Appendix is normal. PELVIC ORGANS/BLADDER: Unremarkable. LYMPH NODES: No lymphadenopathy. VESSELS: There is moderate atherosclerotic disease in the aorta and major arterial branches. PERITONEUM / RETROPERITONEUM: No free air or fluid. BONES: Compared to 06/29/2019, increased size and number of multiple expansile destructive solid masses throughout the skeleton including involvement of the vertebrae. Malignant involvement of lower cervical and mid thoracic possibly encroach on the spinal canal but no evidence of canal stenosis..Degenerative changes in the spine. Healing lower rib fractures. SOFT TISSUES: Unremarkable. IMPRESSION: 1. New large volume right hemothorax. 2. Progression of widespread metastatic disease with increased size and number of osseous and hepatic metastasis as above. 3. A 2.9 cm masslike consolidation with central cavitation in the left lower lobe basomedial segment may be a necrotic metastasis versus necrotic infection. Signed by: Jean Marie Patrick DO on 10/07/2019 11:49 PM
[2019-10-08] VITALS (25 sets, daily range): BP systolic 94–150; BP diastolic 50–110
--- NOTE | 2019-10-08 00:05 | NUR ---
Spoke to Dr. Puckett. He states albumin can be administered in the morning when the pharmacist arrives. No albumin in any of the pyxis.
--- NOTE | 2019-10-08 00:19 | NUR ---
Dr. Puckett called with CT results. New orders obtained.
[2019-10-08] MEDS ORDERED: PANTOPRAZOLE SO20 MG PO (00:48)
[2019-10-08] MEDS ORDERED: PREDNISONE5 MG PO (00:48)
[2019-10-08] MEDS ORDERED: LISINOPRIL10 MG PO (00:48)
[2019-10-08] MEDS ORDERED: morphine sulfate IR PO (00:48)
--- NOTE | 2019-10-08 03:16 | NUR ---
Patient resting with no distress noted. RR even and unlabored. Family at bedside.
--- NOTE | 2019-10-08 03:16 | NUR ---
Right central line noted to be saturated with blood. New dressing applied in sterile manner.
[2019-10-08] MEDS ORDERED: HUMALOG100 UNIT/1 SC (03:26)
[2019-10-08 04:48] LABS: BASOPHILS % 0.3 % (0.0-1.0); EOSINOPHILS % 0.3 % (0.0-6.0); HEMATOCRIT 26.6 % (38.2-49.6); HEMOGLOBIN 8.4 g/dL (14.0-18.0); LYMPHOCYTES # (AUTO) 0.5 (1.0-3.2); LYMPHOCYTES % 15.2 % (18.0-39.1); MEAN CORPUSCULAR HEMOGLOBIN 28.9 pg (28-32); MEAN CORPUSCULAR HGB CONC 31.6 g/dL (31-35); MEAN CORPUSCULAR VOLUME 91.4 fL (81-99); MONOCYTES # (AUTO) 0.3 (0.2-0.8); NEUTROPHILS # (AUTO) 2.6 (2.1-6.9); NEUTROPHILS % 74.8 % (38.7-80.0); PLATELET COUNT 61 x10e3/uL (140-360); RED BLOOD COUNT 2.91 x10e6/uL (4.3-5.7); RED CELL DISTRIBUTION WIDTH 20.4 % (11.7-14.4)
[2019-10-08 05:06] LABS: ALBUMIN 1.7 g/dL (3.5-5.0); ALBUMIN/GLOBULIN RATIO 0.5 (0.8-2.0); ANION GAP 11.1 mmol/L (8-16); CREATININE, SERUM 1.49 mg/dL (0.72-1.25); POTASSIUM 5.1 mmol/L (3.5-5.1)
[2019-10-08 05:13] LABS: CREATINE KINASE MB 1.1 ng/mL (0-5.0)
[2019-10-08 05:20] LABS: CALCIUM 6.8 mg/dL (8.4-10.2)
[2019-10-08] MEDS ORDERED: ALBUMIN 25% 12.5GM 0.25 GM/ML BTL IV ONE (06:00)
--- NOTE | 2019-10-08 08:41 | Progress Note ---
DATE: SUBJECTIVE: The patient required the initiation of Levophed yesterday after receiving intravenous volume. He is now on Levophed at 5 mcg. He is urinating. He feels better overall and has less dizziness and less malaise. He is not complaining of any specific pain. PHYSICAL EXAMINATION: VITAL SIGNS: The blood pressure is 91/51 and the pulse is 82. The respiratory rate is 18 and saturation is 96%. He is afebrile. HEENT: Shows no facial swelling or erythema. CARDIAC: Reveals a regular rate and rhythm with normal S1 and S2. There are no murmurs or rubs. LUNGS: Auscultation of lungs reveals decreased breath sounds on both sides, more on the right than the left. ABDOMEN: Soft and mildly distended. There is no rebound or guarding. There is no leg edema. NEUROLOGIC: Shows no focal abnormalities. LABORATORY DATA: BUN to creatinine ratio is 32 to 1.49. The lactic acid is now improved to 1.8. Sodium is 133. The albumin is 1.7. The white blood cell count is 3.4 after receiving Neupogen. The hemoglobin is 8.4 and the platelet count is 61. PT is 15.3. RADIOGRAPHIC DATA: CT scan of the brain shows no acute abnormalities. CT scan of the chest shows consolidation and atelectasis of the right lower lobe as well as pleural effusion of increased density on the right, representing either blood or malignancy. There is some invasion and destruction of the rib in the right lower thorax. The patient also has a cavitary lesion at the base of the left lower lobe as well as some osseous destruction of the ribs. There are malignant changes of the bones in the lower cervical and mid thoracic region as well. The patient has an increased number of hepatic masses in both lobes. The largest measures 10.2 cm on the right. IMPRESSION: 1. Hepatocellular carcinoma with increased osseous and lung metastases. 2. Malignant changes in the right pleural space. 3. Leukopenia after receiving Neupogen. 4. Thrombocytopenia. 5. Cirrhosis. 6. Hepatorenal syndrome type 2. 7. Anemia secondary to chronic blood loss. PLAN: 1. The patient is scheduled to receive albumin today. We will wean Levophed as tolerated. 2. I spoken to the daughter again. I have explained the CT scan looks worse and there are increased bony metastases. The daughter will speak to her sisters and to Oncology regarding possible hospice. 3. Continue current antibiotics and await culture results. 4. Neupogen as needed to Oncology. 5. Continue to monitor renal function and urine output. 6. Prognosis remains very poor. 7. Case discussed with the ICU nursing staff, daughter, and ER physician. Greater than 35 minutes in direct critical care time. Juventino Puckett MD [facility]/JAK /[id number]
[2019-10-08 08:42] LABS: BAND NEUTROPHILS % (MANUAL) 21 %; LYMPHOCYTES % (MANUAL) 15 % (19-48); METAMYELOCYTES % (MANUAL) 3 % (0-0); MONOCYTES % (MANUAL) 6 % (3.4-9.0); MYELOCYTES % (MANUAL) 2 % (0-0); NEUTROPHILS % (MANUAL) 53 % (40-74)
[2019-10-08 08:44] LABS: PLATELET ESTIMATE MARKEDLY DECREASED; PLATELET MORPHOLOGY COMMENT NORMAL; POLYCHROMASIA FEW
[2019-10-08] MEDS: CEFEPIME 2 GM/NS 0.9% 100 ML 100 ML IV SCH ×3 (09:56→21:07)
[2019-10-08] MEDS: GABAPENTIN 300 MG CAP PO SCH ×2 (09:56→18:29)
[2019-10-08] MEDS: ALLOPURINOL 100 MG TAB PO SCH ×2 (09:57→18:29)
--- NOTE | 2019-10-08 11:36 | History and Physical ---
PRIMARY CARE PHYSICIAN: Louis Cook MD. CONSULTANTS: CHIEF COMPLAINT: Fever and sepsis with shock. HISTORY OF PRESENT ILLNESS: The patient is a 78-year-old male with liver cancer metastases to the bone and lung, came in with high-grade fever 102 along with hypotension. The patient has a sepsis with shock. He had a CT scan of the chest showed that the patient has right hemothorax and also multiple lesions in the lungs along with liver and also bone metastasis. The patient is on isolation for COVID-19 rule out. The patient is otherwise stable at this time. He is progressively weak per family. The patient is a DNR and pending for evaluation for possible going home with hospice. PAST MEDICAL HISTORY: Liver cancer with metastasis to the bones and lungs. Leukopenia, thrombocytopenia, and pancytopenia. He did receive chemotherapy without tolerant. PHYSICAL EXAMINATION: VITAL SIGNS: Temperature is 102, blood pressure on admission was 67/41, pulse rate was 90. Current blood pressure is 116/50, pulse rate is 86, and respirations 18. GENERAL: The patient seems weak. He is DNR. HEENT: Normocephalic and atraumatic. Pupils are reactive. PULMONARY: Diminished breath sounds bilaterally, worse on the right greater than left. CARDIOVASCULAR: Tachycardia with regular rate and rhythm. ABDOMEN: Distended, tenderness. EXTREMITIES: No cyanosis or edema. NEUROLOGIC: The patient is awake, very weak overall. LABORATORY DATA: Sodium is 133, potassium 5.1, chloride 107, bicarb 20, BUN is 32, creatinine 1.4, and glucose 165. WBC 3.4, previously was 1.65, hemoglobin is 8.4, hematocrit 26.6, and platelets is 61. IMAGING DATA: Imaging tests showed that the patient has metastasis on both of his chest and his abdomen. Large volume right hemothorax. IMPRESSION: 1. Sepsis with shock. 2. Probable pneumonia. 3. Large volume right hemothorax. 4. A 2.5 cm masslike consolidation in the left lower lobe and with multiple liver metastasis. PLAN: Continue with comfort measure with antibiotics. Fluid support. Consultation with hospice for possible going home on hospice once ruled for COVID-19. The patient is otherwise clinically stable at this time. MD GERARD Alicia/JAK /[id number]
--- NOTE | 2019-10-08 13:04 | NUR ---
ABAD notified Lisa with [facility] that pt's family would like to speak to her for information regarding hospice. Lisa informed ABAD she called and spoke with both of pt's daughters. Daughters said they will talk to their mom and siblings and decide if they want to proceed with hospice.
[2019-10-08] MEDS ORDERED: PROPOFOL IV EMULSION 10MG/ML 100 ML IV PRN (15:00)
[2019-10-08] MEDS: SODIUM CHLORIDE 0.9% 1000ML 1,000 ML IV SCH (21:06)
[2019-10-08] MEDS: MORPHINE SULFATE 15MG TAB CR PO PRN (21:55)
[2019-10-09] VITALS (43 sets, daily range): BP systolic 76–134; BP diastolic 43–100
[2019-10-09] MEDS: CEFEPIME 2 GM/NS 0.9% 100 ML 100 ML IV SCH (06:29)
[2019-10-09 07:22] LABS: BASOPHILS % 0.9 % (0.0-1.0); EOSINOPHILS # (AUTO) 0.6 (0.0-0.4); EOSINOPHILS % 25.3 % (0.0-6.0); HEMATOCRIT 22.8 % (38.2-49.6); LYMPHOCYTES # (AUTO) 0.5 (1.0-3.2); LYMPHOCYTES % 21.8 % (18.0-39.1); MEAN CORPUSCULAR HEMOGLOBIN 29.4 pg (28-32); MEAN CORPUSCULAR HGB CONC 32.9 g/dL (31-35); MEAN CORPUSCULAR VOLUME 89.4 fL (81-99); MONOCYTES # (AUTO) 0.2 (0.2-0.8); MONOCYTES % 8.9 % (4.4-11.3); NEUTROPHILS # (AUTO) 0.7 (2.1-6.9); NEUTROPHILS % 30.7 % (38.7-80.0); RED BLOOD COUNT 2.55 x10e6/uL (4.3-5.7); RED CELL DISTRIBUTION WIDTH 20.2 % (11.7-14.4)
[2019-10-09 07:30] LABS: PLATELET COUNT 30 x10e3/uL (140-360)
[2019-10-09 07:31] LABS: HEMOGLOBIN 7.5 g/dL (14.0-18.0)
[2019-10-09 08:20] LABS: ANION GAP 10.4 mmol/L (8-16); BLOOD UREA NITROGEN 21 mg/dL (7-26); BUN/CREATININE RATIO 29 (6-25); CALCIUM 7.1 mg/dL (8.4-10.2); CARBON DIOXIDE 20 mmol/L (22-29); CHLORIDE 111 mmol/L (98-107); CREATININE, SERUM 0.73 mg/dL (0.72-1.25); EST GLOMERULAR FILTRATION RATE > 60 ML/MIN (60-); GLUCOSE 98 mg/dL (74-118); POTASSIUM 4.4 mmol/L (3.5-5.1); SODIUM 137 mmol/L (136-145)
[2019-10-09 08:59] LABS: FERRITIN 1978.65 ng/mL (21.81-274.66)
[2019-10-09] MEDS: ALLOPURINOL 100 MG TAB PO SCH ×2 (09:23→16:03)
[2019-10-09] MEDS: METRONIDAZOLE 500MG/NS 100ML 100 ML IV SCH ×3 (09:23→21:31)
[2019-10-09] MEDS: GABAPENTIN 300 MG CAP PO SCH ×2 (09:23→16:03)
[2019-10-09 10:19] LABS: PLATELET ESTIMATE MARKEDLY DECREASED
[2019-10-09 10:21] LABS: BAND NEUTROPHILS % (MANUAL) 15 %; LYMPHOCYTES % (MANUAL) 15 % (19-48); METAMYELOCYTES % (MANUAL) 2 % (0-0); MONOCYTES % (MANUAL) 6 % (3.4-9.0); MYELOCYTES % (MANUAL) 1 % (0-0); NEUTROPHILS % (MANUAL) 61 % (40-74)
--- NOTE | 2019-10-09 13:00 | Progress Note ---
DATE: SUBJECTIVE: The patient feels better. He is asking to have his groin line removed. He has no fever or pain. He has less abdominal distention. OBJECTIVE: VITAL SIGNS: The patient is afebrile. The vital signs are stable. HEENT: Shows no facial swelling or erythema. CARDIAC: Reveals regular rate and rhythm with a normal S1 and S2. There are no murmurs or rubs. LUNGS: Auscultation of the lungs shows decreased breath sounds at bases. ABDOMEN: Soft, nontender. There is no rebound or guarding. EXTREMITIES: Show no leg edema or calf tenderness. LABORATORY DATA: White blood cell count is 2.25 and hemoglobin is 7.5. The platelet count is 30. BUN to creatinine ratio is normal. The other electrolytes are within normal limits. IMPRESSION: 1. Hepatocellular carcinoma with increased osseous and lung metastases. 2. Malignant changes in the right pleural space. 3. Thrombocytopenia. 4. Cirrhosis. 5. Hepatorenal syndrome. 6. Anemia secondary to chronic blood loss. PLAN: 1. Wean the patient off Levophed. 2. Repeat albumin. 3. Place PICC line and remove femoral line. 4. Continue to monitor renal function and urine output. 5. Prognosis remains poor. Consider hospice. MD ABRAHAM Castro/JAK /[id number]
[2019-10-09] MEDS ORDERED: ALBUMIN 25% 25GM 100ML 0.25 GM/ML BTL IV ONE (13:30)
[2019-10-09] MEDS: AZTREONAM 1 GM/NS 50 ML 50 ML IV SCH ×2 (14:29→21:30)
[2019-10-09] MEDS: SODIUM CHLORIDE 0.9% 1000ML 1,000 ML IV SCH (14:29)
--- NOTE | 2019-10-09 15:15 | NUR ---
SPOKE AT LENGTH W PT'S DTR TIARA; WHO STATES SHE IS A NURSE. STATES HER OLDER SISTER ROSENDO WILL BE MAKING THE FINAL DECISION ALONG W THEIR MOTHER IF HOSPICE IS APPROPRIATE FOR THEM. STATES HER FATHER IS DOING BETTER W HYDRATION. STATES DR. YANES TOLD THE FAMILY HE WOULD TRANSITION THE PATIENT TO THE FLR AND ASSESS HIS BUN AND CREAT ARE BETTER AND IF HIS HGB STAYS WNL. STATES SHE SPOKE W A FRIEND FROM [facility] AND WAS TOLD THEY MIGHT PROVIDE HYDRATION FOR THE PT. STATES [facility] SAID THEY WOULD NOT PROVIDE THIS SERVICE. INFORMED TIARA THIS IS USUALLY HOW IT IS DONE. SHE STATES THE FAMILY IS NOT AGAINST HOSPICE, BUT IT IS A DECISION THAT HAS TO BE MADE QUICKLY. INFORMED THEY CAN ALWAYS CHOOSE EVEN IF THE PT TRANSITIONS HOME W/O HOSPICE. VERBALIZED UNDERSTANDING. INFORMED CM WILL F/U TOMORROW. AGREED.
[2019-10-09] MEDS ORDERED: ALBUTEROL/IPRATROPIUM 3 ML NEB NEB PRN (19:15)
--- NOTE | 2019-10-09 19:30 | NUR ---
Received patient stable, no complaints raised, on NS at 30mls per hour
[2019-10-09] MEDS ORDERED: FILGRASTIM 480 MCG/0.8 ML SQ ONE (20:00)
[2019-10-09] MEDS: BENZONATATE 100 MG CAP PO SCH (21:31)
[2019-10-09] MEDS: MORPHINE SULFATE 15MG TAB CR PO PRN (23:39)
[2019-10-10] VITALS (22 sets, daily range): BP systolic 88–140; BP diastolic 49–96
--- NOTE | 2019-10-10 05:00 | NUR ---
Patient cleaned, dirty linens changed, femoral triple lumen removed, site cleaned and dry, no bleeding noted
[2019-10-10] MEDS: AZTREONAM 1 GM/NS 50 ML 50 ML IV SCH ×3 (05:22→20:55)
[2019-10-10 05:25] LABS: BASOPHILS % 0.3 % (0.0-1.0); HEMATOCRIT 21.6 % (38.2-49.6); LYMPHOCYTES # (AUTO) 0.5 (1.0-3.2); LYMPHOCYTES % 15.3 % (18.0-39.1); MEAN CORPUSCULAR HEMOGLOBIN 28.8 pg (28-32); MEAN CORPUSCULAR HGB CONC 31.9 g/dL (31-35); MONOCYTES # (AUTO) 0.2 (0.2-0.8); MONOCYTES % 7.8 % (4.4-11.3); NEUTROPHILS # (AUTO) 2.2 (2.1-6.9); NEUTROPHILS % 74.9 % (38.7-80.0); RED CELL DISTRIBUTION WIDTH 20.4 % (11.7-14.4)
[2019-10-10 05:39] LABS: HEMOGLOBIN 6.9 g/dL (14.0-18.0)
[2019-10-10 05:40] LABS: PLATELET COUNT 30 x10e3/uL (140-360)
--- NOTE | 2019-10-10 05:43 | Consultation ---
DATE OF CONSULTATION: 10/08/2019 Infectious Disease Consultation REASON FOR ADMISSION: Sepsis present on admission. HISTORY OF PRESENT ILLNESS: Mr. Vásquez is a 78-year-old male, who has history of liver cancer with METS, history of metastasis to thoracic area, underwent a CT-guided biopsy in June 2019. He was found to have hepatocellular cancer. He has been followed by Dr. Beck of Oncology. The patient has been on chemotherapy for the last 2 weeks. The patient became leukopenic, thrombocytopenic, confused, had fever. He was brought to emergency room where he was admitted currently in the intensive care unit. The patient does not really provide any information. History was taken mainly from the chart. His blood cultures are pending. His white count when he first came was 1.65, went up to 3.48, hemoglobin of 8.4 with a platelet of 61. His sodium 133, potassium 5.7 with a creatinine 1.49. REVIEW OF SYSTEMS: Could not be obtained. MEDICATIONS: Currently on cefepime and Neurontin. PHYSICAL EXAMINATION: GENERAL: He is currently confused. VITAL SIGNS: His vitals stable currently. HEENT: He is not icteric. NECK: Supple. CHEST: Clear. COR: S1 and S2. ABDOMEN: Soft. LABORATORY AND DIAGNOSTIC DATA: He had CAT scan of the pelvis showed a new large volume right hemothorax, widespread metastatic disease advancing, a masslike consolidation in the left lower lobe. IMPRESSION: 1. Sepsis, present on admission, concern postobstructive pneumonia, concern hepatocellular cancer with metastases, right pleural effusion, probably malignant, leukopenia after chemo, now received Neupogen, seemed to be improving. 2. Thrombocytopenia. 3. Liver cirrhosis. 4. Acute on chronic kidney disease. 5. Agree with IV fluid. 6. Agree with cefepime. 7. Adjust for his kidney function. 8. Prognosis is extremely poor. 9. Agree with hospice. 10. Continue supportive care. 11. We will follow. MD JOSE ELIAS Murillo/JAK /[id number]
[2019-10-10 05:47] LABS: ANION GAP 9.1 mmol/L (8-16); BLOOD UREA NITROGEN 15 mg/dL (7-26); BUN/CREATININE RATIO 23 (6-25); CALCIUM 7.1 mg/dL (8.4-10.2); CARBON DIOXIDE 21 mmol/L (22-29); CHLORIDE 110 mmol/L (98-107); CREATININE, SERUM 0.64 mg/dL (0.72-1.25); EST GLOMERULAR FILTRATION RATE > 60 ML/MIN (60-); GLUCOSE 78 mg/dL (74-118); POTASSIUM 4.1 mmol/L (3.5-5.1); SODIUM 136 mmol/L (136-145)
[2019-10-10] MEDS: BENZONATATE 100 MG CAP PO SCH ×3 (06:00→21:36)
[2019-10-10] MEDS: METRONIDAZOLE 500MG/NS 100ML 100 ML IV SCH ×3 (06:00→21:36)
--- NOTE | 2019-10-10 06:23 | NUR ---
Received, critical results, left a message to Dr Evans concerning the same
--- NOTE | 2019-10-10 08:33 | NUR ---
SPOKE WITH DAUGHTER TIARA, SHE STATES SHE HAS NOT CALLED [facility], SHE GOES ON TO STATE THAT SHE SPOKE WITH DR YANES AND THEY ARE NOT GOING TO TAKE HIM HOME UNTIL THEY ARE DONE TREATING HIM FOR HIS PNEUMONIA. SHE STATES THEY HAVE ALREADY BEEN TREATING WITH PALLIATIVE CARE AT HOME. SHE STATES SHE WILL LET US KNOW WHEN THEY ARE GOING TO CONSIDER HOSPICE OPTIONS. HAS 5 SISTERS AND MOTHER THAT ARE MAKING DECISIONS. SHE STATES THEY WILL NOT CONSIDER ANY OPTIONS UNTIL THERE IS NOTHING ELSE THAT CAN BE DONE.
[2019-10-10 08:57] LABS: EOSINOPHILS % (MANUAL) 1 % (0-7); LYMPHOCYTES % (MANUAL) 14 % (19-48); MONOCYTES % (MANUAL) 4 % (3.4-9.0); NEUTROPHILS % (MANUAL) 81 % (40-74); NUCLEATED RED BLOOD CELLS 1; OVALOCYTES FEW
[2019-10-10 08:58] LABS: ANISOCYTOSIS SLIGHT; PLATELET ESTIMATE ADEQUATE; PLATELET MORPHOLOGY COMMENT NORMAL; RBC MORPHOLOGY COMMENT NORMAL
[2019-10-10 08:59] LABS: POLYCHROMASIA FEW
[2019-10-10] MEDS: GABAPENTIN 300 MG CAP PO SCH ×2 (09:19→17:00)
[2019-10-10] MEDS: ALLOPURINOL 100 MG TAB PO SCH ×2 (09:19→17:00)
[2019-10-10] MEDS: GUAIFENESIN 600 MG TAB PO SCH ×2 (09:19→17:00)
[2019-10-10] MEDS: MORPHINE SULFATE 15MG TAB CR PO PRN ×2 (09:36→17:33)
[2019-10-10] MEDS ORDERED: SODIUM CHLORIDE 0.9% 250ML 250 ML IV ONE (10:55)
--- NOTE | 2019-10-10 12:15 | NUR ---
late entery 10/09/19 [id number]
--- NOTE | 2019-10-10 13:19 | Progress Note ---
DATE: 10/09/2019 SUBJECTIVE: Mr. Quintana is doing better, alert and oriented. There are no new complaints. The patient has history of cancer with mets, comes in with shortness of breath. The patient was seen and examined. Family at the bedside. REVIEW OF SYSTEMS: He seems to be doing much better. I met with the family. PHYSICAL EXAMINATION: GENERAL: Alert and oriented. Does not seem to be in acute distress. VITAL SIGNS: Stable. Afebrile. HEENT: Not icteric. NECK: Supple. CHEST: Clear. HEART: S1 and S2. ABDOMEN: Soft. From Infectious Disease point of view, the patient probably has postobstructive pneumonia. He is doing well. Cancer with mets. Stable, can leave the ICU. From Infectious Disease point of view, COVID-19 is still pending, but doubtful. MD JOSE ELIAS Murillo/JAK /[id number]
--- NOTE | 2019-10-10 13:30 | Progress Note ---
DATE: SUBJECTIVE: The patient feels better. He is off Levophed. His COVID-19 serology is negative. PHYSICAL EXAMINATION: VITAL SIGNS: The blood pressure is 113/62 and the saturation is 87%. HEENT: Shows no facial swelling or erythema. CARDIAC: Reveals a regular rate and rhythm with normal S1 and S2. RESPIRATORY: Auscultation of lungs reveal rhonchorous breath sounds bilaterally. There is no wheezing. ABDOMEN: Soft and nontender. There is no rebound or guarding. EXTREMITIES: Show no leg edema or calf tenderness. There is no cyanosis or clubbing. SKIN: Shows no rashes. NEUROLOGICAL: Shows no focal abnormalities. LABORATORY DATA: White blood cell count is 2.9, the hemoglobin is 6.9, and the platelet count is 30. BUN to creatinine ratio is normal. The other electrolytes are within normal limits. IMPRESSION: 1. Metastatic hepatocellular carcinoma. 2. Sepsis present on admission, possibly secondary to postobstructive pneumonia. 3. Liver cirrhosis. 4. Thrombocytopenia. 5. Anemia secondary to chronic blood loss. PLAN: 1. Continue current antibiotics. 2. Continue IV fluids as needed. 3. Transfer out of intensive care unit. 4. Probable hospice. Juventino Puckett MD [facility]/JAK /[id number]
--- NOTE | 2019-10-10 13:36 | NUR ---
initial Type & Cross drawn at 1110. platelets infusing now and Lab needs another sample to send out for antibodies. awaiting platelet transfusion completion.
--- NOTE | 2019-10-10 13:49 | NUR ---
Dr Puckett and Dr Alas have both cleared patient for discharge. awaiting return call from Dr Evans for order.
--- NOTE | 2019-10-10 16:03 | NUR ---
RCD REPORT FROM IR THEY DRAINED 700 ML OF BLOOD STAINED FLUID
--- NOTE | 2019-10-10 16:23 | Diagnostic Imaging Report ---
EXAMINATION: CHEST XRAY POST PROCEDURE INDICATION: Postprocedural COMPARISON: Chest radiograph 10/09/2019 FINDINGS: LINES/TUBES:Right PICC line terminates in the superior vena cava. LUNGS:The lung volumes are low. Bilateral right greater than left airspace opacities, increased from the prior study. PLEURA:Interval decrease in right pleural effusion. No pneumothorax status post thoracentesis. No left pleural effusion. MEDIASTINUM:The cardiomediastinal silhouette appears unchanged in size and shape. BONES/SOFT TISSUES:No acute osseous injury. Destructive rib metastases are better appreciated on prior CT. ABDOMEN:No free air under the diaphragm. IMPRESSION: No pneumothorax status post right thoracentesis. Residual small right pleural effusion. Interval increase in bilateral right greater than left airspace opacities, concerning for multifocal pneumonia in the proper clinical setting. Signed by: Gissell Milian MD on 10/10/2019 4:20 PM
--- NOTE | 2019-10-10 16:25 | NUR ---
RCD PT BY BED AFTER THE PROCEDURE PT IS ALERT AND ORIENTED VITALS CHECKED PT RESTING ON BED NO SIGNS OF ANY BLEEDING ON NEEDLE SITE FAMILY AT BED SIDE BED LOW AND LOCKED CALL LIGHT IN REACH
--- NOTE | 2019-10-10 16:34 | Diagnostic Imaging Report ---
PROCEDURE: Ultrasound-guided thoracentesis Procedural Personnel Attending physician(s): Gissell Milian MD Fellow physician(s): None Resident physician(s): None Advanced practice provider(s): None Pre-procedure diagnosis: Pleural effusion, cough, shortness of breath Post-procedure diagnosis: Same Indication: Pleural effusion with compromised respiration Additional clinical history: None Complications: Patient had persistent cough prior to, during, and after the procedure. Prior to the procedure, patient required 4L nasal cannula oxygen to maintain sats in low 90's. Fever of 102+ upon arrival to department. IMPRESSION: Ultrasound-guided thoracentesis with drainage of 700 mL of bloody fluid. Plan: Resume care by clinical team. PROCEDURE SUMMARY: - Limited thoracic ultrasound - Ultrasound-guided thoracentesis - Additional procedure(s): None PROCEDURE DETAILS: Pre-procedure Consent: Informed consent for the procedure including risks, benefits and alternatives was obtained and time-out was performed prior to the procedure. Preparation: The site was prepared and draped using maximal sterile barrier technique including cutaneous antisepsis. Anesthesia/sedation Level of anesthesia/sedation: No sedation Anesthesia/sedation administered by: Not applicable Total intra-service sedation time (minutes): N/A Limited thoracic ultrasound Limited thoracic ultrasound was performed using a curved transducer. A safe window for thoracentesis was identified. Left hemithorax findings: Not investigated Right hemithorax findings: Moderate pleural effusion Thoracentesis Local anesthesia was administered. The pleural space was accessed under real-time ultrasound guidance and fluid return confirmed position. The fluid was drained. The catheter was removed, and a sterile bandage was applied. Catheter placed: 5F Cynthia[place] Post-drainage hemithorax findings: Small pleural effusion Additional Details Additional description of procedure: None Equipment details: None Specimens removed: Pleural fluid Estimated blood loss (mL): Less than 10 Standardized report: [email or web address] Attestation Signer name: Gissell Milian MD I attest that I was present for the entire procedure. I reviewed the stored images and agree with the report as written. Signed by: Gissell Milian MD on 10/10/2019 4:30 PM
--- NOTE | 2019-10-10 18:39 | NUR ---
PT RESTING ON BED BED SIDE REPORT GIVEN TO ONCOMING NURSE
--- NOTE | 2019-10-10 20:02 | NUR ---
per dr yoana CHARLES fluids minimum 30ml/hr.
[2019-10-10] MEDS ORDERED: HYDROCORTISONE SOD SUCCINATE 100 MG VIAL IV ONE (20:15)
[2019-10-10] MEDS ORDERED: ACETAMINOPHEN 325 MG TAB PO ONE (20:15)
[2019-10-10] MEDS: SODIUM CHLORIDE 0.9% 1000ML 1,000 ML IV SCH (20:20)
[2019-10-10 21:23] LABS: BODY FLUID APPEARANCE TURBID; BODY FLUID COLOR RED; BODY FLUID TYPE PLEURAL; RBC,BODY FLUID 133848 cells/uL; WBC,BODY FLUID 693 cells/uL
[2019-10-10] MEDS: FENTANYL 50 MCG/HR PATCH TD SCH (21:37)
[2019-10-10 22:34] LABS: LYMPHOCYTES,BODY FLUID 61 %; MONO/MACROPHG,BODY FLUID 18 %; NEUTROPHILS,BODY FLUID 8 %; OTHER CELLS,BODY FLUID 13 %
[2019-10-11] VITALS (8 sets, daily range): BP systolic 107–118; BP diastolic 53–77
[2019-10-11] MEDS: BENZONATATE 100 MG CAP PO SCH ×3 (06:00→21:26)
[2019-10-11] MEDS: AZTREONAM 1 GM/NS 50 ML 50 ML IV SCH ×3 (06:00→21:26)
[2019-10-11] MEDS: METRONIDAZOLE 500MG/NS 100ML 100 ML IV SCH ×3 (06:42→22:42)
[2019-10-11 06:46] LABS: BASOPHILS % 0.5 % (0.0-1.0); HEMATOCRIT 28.6 % (38.2-49.6); HEMOGLOBIN 9.4 g/dL (14.0-18.0); LYMPHOCYTES # (AUTO) 0.4 (1.0-3.2); MEAN CORPUSCULAR HEMOGLOBIN 29.2 pg (28-32); MEAN CORPUSCULAR HGB CONC 32.9 g/dL (31-35); MEAN CORPUSCULAR VOLUME 88.8 fL (81-99); MONOCYTES # (AUTO) 0.3 (0.2-0.8); MONOCYTES % 8.2 % (4.4-11.3); NEUTROPHILS # (AUTO) 2.5 (2.1-6.9); NEUTROPHILS % 69.6 % (38.7-80.0); RED BLOOD COUNT 3.22 x10e6/uL (4.3-5.7); RED CELL DISTRIBUTION WIDTH 19.1 % (11.7-14.4)
[2019-10-11 07:07] LABS: PLATELET COUNT 37 x10e3/uL (140-360)
--- NOTE | 2019-10-11 07:09 | NUR ---
paged dr monico lees regarding plt 37.
--- NOTE | 2019-10-11 07:30 | NUR ---
INFORMED DR. Lakhwinder FOX OF PATIENT'S HH 9.4/28.6; PLATELET COUNT 37. NO NEW ORDERS AT THIS TIME.
[2019-10-11 09:09] LABS: LYMPHOCYTES % (MANUAL) 9 % (19-48); METAMYELOCYTES % (MANUAL) 3 % (0-0); MONOCYTES % (MANUAL) 6 % (3.4-9.0); NEUTROPHILS % (MANUAL) 81 % (40-74); NUCLEATED RED BLOOD CELLS 2
[2019-10-11 09:10] LABS: ANISOCYTOSIS SLIGHT; ELLIPTOCYTE, RBC SLIGHT; OVALOCYTES FEW; PLATELET MORPHOLOGY COMMENT NORMAL; RBC MORPHOLOGY COMMENT NORMAL
[2019-10-11 09:12] LABS: PLATELET ESTIMATE MARKEDLY DECREASED
[2019-10-11] MEDS: GABAPENTIN 300 MG CAP PO SCH ×2 (09:13→17:56)
[2019-10-11] MEDS: GUAIFENESIN 600 MG TAB PO SCH ×2 (09:13→17:56)
[2019-10-11] MEDS: ALLOPURINOL 100 MG TAB PO SCH ×2 (09:13→17:56)
--- NOTE | 2019-10-11 10:48 | NUR ---
SPOKE WITH DAUGHTER ROSENDO, SHE IS OKAY WITH MEETING WITH [facility]S WOULD LIKE SOMEONE THERE THAT CAN ANSWER MOTHERS QUESTIONS IN [place]. GAVE VERBAL CONSENT FOR [facility]. CONTACTED REP AND WILL FILE CHOICE ON CHART. WILL FAX CLINICALS TO HOSPICE.
--- NOTE | 2019-10-11 11:22 | NUR ---
EDUCATED ABOUT IMM FILED IN CHART AFTER DISCUSSING WITH DAUGHTER ROSENDO [place] [phone]
[2019-10-11] MEDS: MORPHINE SULFATE 15MG TAB CR PO PRN ×2 (11:35→21:26)
--- NOTE | 2019-10-11 12:59 | Progress Note ---
DATE: SUBJECTIVE: The patient feels better. He has some mild abdominal discomfort. He is not having fevers. He is awaiting discharge home, but he needs to be on home oxygen. PHYSICAL EXAMINATION: VITAL SIGNS: Stable. CARDIAC: Reveals regular rate and rhythm with normal S1 and S2. LUNGS: Auscultation of lungs shows decreased breath sounds at the bases. ABDOMEN: Soft, nontender. There is no rebound or guarding. EXTREMITIES: Show no leg edema or calf tenderness. There is no cyanosis or clubbing. SKIN: Shows no rashes. NEUROLOGICAL: Shows no focal abnormalities. IMPRESSION: 1. Metastatic hepatocellular carcinoma. 2. Leukocytosis and sepsis of unclear cause. 3. Liver cirrhosis. 4. Thrombocytopenia. 5. Anemia. PLAN: 1. Continue current antibiotics. 2. The patient will be transitioned to p.o. antibiotics. 3. Oxygen at home. 4. Probable discharge to home today or tomorrow. Juventino Puckett MD Narinder/JAK /[id number]
--- NOTE | 2019-10-11 19:04 | NUR ---
AAOX3. ACYANOTIC. RESTING IN BED. NO DISTRESS NOTED. DAUGHTER PRESENT AT BEDSIDE. REPORT RECEIVED BY ONCOMING NURSE.
[2019-10-11] MEDS ORDERED: PHYTONADIONE 5 MG TAB PO ONE (22:45)
[2019-10-12 00:19] VITALS: BP 119/69
[2019-10-12 05:23] VITALS: BP 113/58
[2019-10-12] MEDS: BENZONATATE 100 MG CAP PO SCH ×2 (05:58→14:47)
[2019-10-12] MEDS: AZTREONAM 1 GM/NS 50 ML 50 ML IV SCH ×2 (05:58→13:47)
[2019-10-12] MEDS: MORPHINE SULFATE 15MG TAB CR PO PRN (06:30)
[2019-10-12] MEDS: METRONIDAZOLE 500MG/NS 100ML 100 ML IV SCH ×2 (06:30→14:47)
--- NOTE | 2019-10-12 07:19 | NUR ---
ASSUMED CARE. RESTING IN BED. O2 AT 3L VIA NC. NO DISTRESS NOTED. SIDERAILS UP X2. BED LOW. DAUGHTER PRESENT AT BEDSIDE.
[2019-10-12 07:36] VITALS: BP 132/65
[2019-10-12 08:00] VITALS: BP 132/65
--- NOTE | 2019-10-12 08:06 | NUR ---
CONTACTED BY JANN STATING MEETING FAMILY AT 830, ALSO WAS TOLD BY ANGELLA MEETING WITH FAMILY AT 1030. WILL CONTINUE TO FOLLOW AND UPDATE WHEN HAVE INFORMATION.
[2019-10-12] MEDS ORDERED: PHYTONADIONE 5 MG TAB PO ONE (09:00)
[2019-10-12] MEDS ORDERED: MEGACE 400MG/ 10ML CUP PO SCH (09:00)
[2019-10-12] MEDS: GUAIFENESIN 600 MG TAB PO SCH ×2 (09:12→16:39)
[2019-10-12] MEDS: GABAPENTIN 300 MG CAP PO SCH ×2 (09:12→16:39)
[2019-10-12] MEDS: ALLOPURINOL 100 MG TAB PO SCH ×2 (09:12→16:39)
--- NOTE | 2019-10-12 09:17 | NUR ---
DR. Lakhwinder YANES PAGED TO INFORM HER OF THE NEED TO CHANGE THE ORDER FOR VITAMIN K (ROUTE).
[2019-10-12 12:02] VITALS: BP 126/67
--- NOTE | 2019-10-12 13:29 | NUR ---
SPOKE WITH DAUGHTER ROSENDO SHE STATES STILL NO DECISION AT THIS TIME. WILL CONTINUE TO MONITOR.
--- NOTE | 2019-10-12 13:48 | NUR ---
DAUGHTER ROSENDO CALLED AND STATES THEY WILL BE GOING WITH [facility], THEY ARE GOING TO BE DELIVERING MEDICATIONS, OXYGEN AND NEBULIZER AND BED SIDE TABLE THEN TRANSPORT WILL BE SET UP, SHE WILL FAX ME THE OOH DNR AND LET ME KNOW WHAT TIME WINDOWS SOFTWARE DEVELOPER WILL BE. JULIETH FROM [facility] STATES DR LY IS IN HER OFFICE AND SHE WILL GET THE PRESCRIPTIONS FROM HIM.
--- NOTE | 2019-10-12 14:08 | Progress Note ---
DATE: SUBJECTIVE: The patient is doing better. He is awaiting discharge home with oxygen. PHYSICAL EXAMINATION: VITAL SIGNS: Stable. HEENT: No facial swelling or erythema. CARDIAC: Regular rate and rhythm with normal S1, S2. LUNGS: Auscultation of lungs reveals rhonchorous breath sounds bilaterally. There is no wheezing. ABDOMEN: Soft, nontender. There is no rebound or guarding. EXTREMITIES: No leg edema or calf tenderness. There is no cyanosis or clubbing. SKIN: No rashes. IMPRESSION: 1. Hepatocellular carcinoma with metastatic disease. 2. Cirrhosis. 3. Thrombocytopenia. 4. Anemia. PLAN: 1. Continue current antibiotics. 2. Arrange for home oxygen. 3. Follow up with Oncology as an outpatient. Juventino Puckett MD [facility]/FABRICIOL /[id number]
--- NOTE | 2019-10-12 15:38 | NUR ---
SPOKE WITH [facility]ADITIONS, RECEIVED OOH DNR PLACED ON CHART AND IN PACKET, GAVE DAUGHTER IN ROOM COPIES. TELESALES MANAGER TIME WILL BE 430, DR WILL COME DISCHARGE
[2019-10-12 16:41] VITALS: BP 127/66
--- NOTE | 2019-10-12 17:04 | NUR ---
PICC LINE REMOVED AT 1658 PER PROVIDER ORDER. CATHETER TIP INTACT. PRESSURE APPLIED TO PUNCTURE SITE AFTER REMOVAL FOR 8 MINUTES. BLEEDING CONTROLLED. DRESSING CLEAN, DRY, INTACT. PATIENT AWAKE ALERT PREPARING FOR TRANSFER FROM UNIT VIA STRETCHER WITH EMS STAFF FOLLOWING DISCHARGE. DAUGHTER PRESENT AT BEDSIDE.
--- NOTE | 2019-10-12 17:44 | Discharge Summary ---
PRIMARY CARE PHYSICIAN: Louis Cook MD CONSULTANTS: 1. Dr. Wilfredo Beck. 2. Dr. Prieto Alas. 3. Dr. Juventino Puckett. FINAL DIAGNOSES: 1. Necrotic obstructive pneumonia, secondary to metastatic liver cancer to the lung. 2. Right lung hemothorax. 3. Status post fever and hypotension, secondary to sepsis with shock. 4. Advanced metastatic liver cancer to the bone, abdomen, and the chest. 5. Rule out COIVD-19 infection. SUMMARY: The patient is a 78-year-old male with extensive fail treatment for liver cancer with metastasis to the bone, abdomen, and lung area. The patient is quite ill for the past two weeks or so, came into the hospital with increasing shortness of breath and was hypotensive. The patient was also with fever as well. The patient was isolated for COVID-19 rule out and the patient serology test came back negative. The patient was receiving IV antibiotic as well. Blood pressure improved. The patient did receive 2 units blood transfusion due to his progressive anemia, secondary to his cancer. The patient is at baseline, now bedbound, quite weak, required oxygen and full ADL care. After discussed with the patient's family regarding the patient's status and his prognosis, which is poor and also discussed with Dr. Beck, the patient's coat operator insulator/oncologist. The patient is appropriate for palliative care, which is best for the patient who is with very poor functional status. The patient will go home with comfort palliative care at home, prescription was given. The patient will be discharged today at home in [facility] hosp[facility], already arranged for durable medical equipment and comfort measure. I will go ahead and continue with oral antibiotic clindamycin and doxycycline for 7-day along with nebulizer treatment for the patient comfort. Hopefully, this will allow the patient some comfort for his care at home and quality of life one on his remaining day, instead of continue with treatment that only cause some more problem for the patient now. Discussed with the patient's family and the patient will be discharged home with hospice now. MD GERARD Alicia/FABRICIOL /[id number]
== END 2019-10-12 17:12 | disposition hospice, home (50) | DRG 871 ==
LOC: ER 20:11 → ERHOLD 22:46 → ICU 10-08 05:19 → MED/SURG2 10-10 16:14
PROVIDERS: ADMIT Internal Medicine; ATTEND Internal Medicine
PROC: 02HV33Z Insertion of Infusion Device into Superior Vena Cava, Percutaneous Approach (ICD-10-PCS; 2019-10-07)
PROC: 0W993ZZ Drainage of Right Pleural Cavity, Percutaneous Approach (ICD-10-PCS; 2019-10-09)
PROC: 30243N1 Transfusion of Nonautologous Red Blood Cells into Central Vein, Percutaneous Approach (ICD-10-PCS; principal; 2019-10-10)
DX: A41.9 Sepsis, unspecified organism (principal); R65.21 Severe sepsis with septic shock; K76.7 Hepatorenal syndrome; J18.8 Other pneumonia, unspecified organism; J94.2 Hemothorax; C22.9 Malignant neoplasm of liver, not specified as primary or secondary; N17.9 Acute kidney failure, unspecified; J90 Pleural effusion, not elsewhere classified; C79.51 Secondary malignant neoplasm of bone; C78.00 Secondary malignant neoplasm of unspecified lung; D61.818 Other pancytopenia; K74.0 Hepatic fibrosis; D69.6 Thrombocytopenia, unspecified; K74.60 Unspecified cirrhosis of liver; D63.0 Anemia in neoplastic disease; Z66 Do not resuscitate; D50.0 Iron deficiency anemia secondary to blood loss (chronic); D70.2 Other drug-induced agranulocytosis; T45.8X5A Adverse effect of other primarily systemic and hematological agents, initial encounter
CPT/HCPCS: 32555; 36415; 36555; 36569; 70450; 71250; 74176; 74470; 80048; 80053; 81001; 82140; 82150; 82533; 82550; 82553; 82728; 82948; 83540; 83605; 83690; 84466; 84484; 85025; 85610; 85730; 86850; 86870; 86880; 86900; 86905; 86920; 86922; 87040; 87070; 87205; 87400; 87633; 87635; 88112; 88305; 88342; 89051; 93005; 99001; 99285; J1442; J1720; J3370; J7030; J7050; P9016; P9034; P9047